=== PATIENT | female | born 1965 | race Caucasian/White ===

== ENCOUNTER 2017-11-30 07:29 | Day surgery (SDC) | payer MEDICARE, MEDICAID ==
[2017-11-26 12:15] LABS: BASOPHILS % (AUTO) 0.3 % (0-1); EOSINOPHILS # (AUTO) 0.2 X10'3 (0-0.9); EOSINOPHILS % (AUTO) 1.4 % (0-6); LYMPHOCYTES # (AUTO) 3.3 X10'3 (1.1-4.8); LYMPHOCYTES % (AUTO) 29.7 % (21-51); MEAN CORPUSCULAR HEMOGLOBIN 30.8 PG (27.0-31.0); MEAN CORPUSCULAR HGB CONC 34.4 % (33.0-36.5); MEAN CORPUSCULAR VOLUME 89.7 FL (78-98); MEAN PLATELET VOLUME 7.9 FL (7.4-10.4); MONOCYTES # (AUTO) 0.8 X10'3 (0-0.9); MONOCYTES % (AUTO) 6.8 % (2-12); NEUTROPHILS # (AUTO) 6.9 X10'3 (1.8-7.7); NEUTROPHILS % (AUTO) 61.8 % (42-75); PRE OP HEMOGLOBIN 14.8 g/dL (12.0-16.0); PRE OP PLATELET COUNT 285 X10'3 (140-440); RED CELL DISTRIBUTION WIDTH 13.9 % (11.5-14.5)
[2017-11-26 12:36] LABS: ALBUMIN 3.3 G/DL (3.4-5.0); ALBUMIN/GLOBULIN RATIO 0.8 (1.1-1.5); ALKALINE PHOSPHATASE 83 IU/L (46-116); BLOOD UREA NITROGEN 12 MG/DL (7-18); CALCIUM 9.3 MG/DL (8.5-10.1); CHLORIDE 107 MMOL/L (99-107); PRE OP ALT 28 U/L (30-65); PRE OP ANION GAP 5 (8-16); PRE OP AST 21 U/L (10-37); PRE OP BILIRUB, TOTAL 0.4 MG/DL (0.0-1.0); PRE OP GLUCOSE 146 MG/DL (70-104); PRE OP SODIUM 144 MMOL/L (135-145); TOTAL PROTEIN 7.2 G/DL (6.4-8.2); eGFR 75 ML/MIN
[2017-11-30] VITALS (10 sets, daily range): BP systolic 121–157; BP diastolic 65–90
[~2017-11-30] VITALS: Ht 152.4 cm; Wt 108.4 kg
[~2017-11-30 07:29] MED LIST: ALBU18HF2; ALEN35TA32 PO; BUPIVAcaine/PF 2.5 mg/ml (0.25%) 30ml vial ONE; EZET10TA26 PO; FENO200C23 PO; FLUO40CA PO; FURO40TA4 PO; HYDR-3972 PO; ISOS10TA2 PO; LANTUS SQ; LINA5TAB4 PO; LISI-600 PO; METF10002 PO; METO25TA6 PO; NAPR-996 PO; NOVLG SQ; POTA8TAB8 PO; ROSU40TA29 PO; TIOT18CA3 IR; TOPI50TA24 PO; TRAZ-143 PO; clindamycin 600mg/D5W 50ml 50 ML IV ONE; famotidine 20mg tablet PO ONE; ringers solution, lacted 1,000 ML IV SCH
[2017-11-30] MEDS ORDERED: albuterol 2.5 MG/3 ML nebule NEB ONE (08:03)
[2017-11-30] MEDS ORDERED: LIDOcaine 0.5% (5mg/ml) 50ml vial ONE (08:11)
[2017-11-30] MEDS ORDERED: fentaNYL/PF 50MCG/1 ML 2ML syringe ONE ×2 (09:24→09:34)
[2017-11-30] MEDS ORDERED: midazolam 2 mg/2 ml injection ONE ×2 (09:25→09:42)
[2017-11-30] MEDS ORDERED: insulin regular, human vial - multi-dose ONE (09:33)
[2017-11-30] MEDS ORDERED: labetalol 5mg/ml 20ml inj. IV ONE (09:50)
[2017-11-30] MEDS ORDERED: ringers solution, lacted 1,000 ML IV SCH (10:09)
[2017-11-30] MEDS ORDERED: ondansetron/PF 4mg/2ml inj IV PRN (10:10)
[2017-11-30] MEDS ORDERED: meperidine/PF 50mg/ml syringe IV PRN ×2 (10:10)
[2017-11-30] MEDS ORDERED: insulin regular, human 10 units/0.1 ml syringe IV ONE (10:15)
[2017-11-30] MEDS ORDERED: ondansetron 4mg rapidly disintigrating tab PO ONE (11:10)
== END 2017-11-30 11:40 | disposition home or self-care (01) ==
LOC: PAS 07:29
PROVIDERS: ATTEND Orthopaedic Surgery Hand Surgery
DX: G56.02 Carpal tunnel syndrome, left upper limb (principal); G47.33 Obstructive sleep apnea (adult) (pediatric); I10 Essential (primary) hypertension; E66.9 Obesity, unspecified; E11.9 Type 2 diabetes mellitus without complications; F32.9 Major depressive disorder, single episode, unspecified; I44.4 Left anterior fascicular block; J45.998 Other asthma; F41.9 Anxiety disorder, unspecified; Z79.891 Long term (current) use of opiate analgesic; Z79.84 Long term (current) use of oral hypoglycemic drugs; Z79.4 Long term (current) use of insulin; Z88.6 Allergy status to analgesic agent; Z88.0 Allergy status to penicillin; Z87.891 Personal history of nicotine dependence; Z79.899 Other long term (current) drug therapy; Z98.890 Other specified postprocedural states; Z88.8 Allergy status to other drugs, medicaments and biological substances; Z68.42 Body mass index [BMI] 45.0-49.9, adult
CPT/HCPCS: 36415; 64721; 80053; 82948; 85025; 93005; 94640; A6222; A6449; J1815; J2001; J2250; J3010; J3490; J7120; J2405

== ENCOUNTER 2017-12-28 05:36 | Day surgery (SDC) | payer MEDICARE, MEDICAID ==
[~2017-12-28] VITALS: Ht 152.4 cm; Wt 108.0 kg
[~2017-12-28 05:36] MED LIST changes: -BUPIVAcaine/PF 2.5 mg/ml (0.25%) 30ml vial ONE; +DOCUMENT DATE & TIME OF BETA-BLOCKER PO ONE; -METF10002 PO; +METF10004 PO
[2017-12-28] MEDS ORDERED: LIDOcaine 1% (10mg/ml) 2ml vial ONE (05:57)
[2017-12-28] MEDS ORDERED: BUPIVAcaine 0.5% inj/PF 30 ml vial ONE (06:42)
[2017-12-28] MEDS ORDERED: albuterol 2.5 MG/3 ML nebule NEB ONE (06:55)
[2017-12-28 07:00] LABS: BASOPHILS # (AUTO) 0.1 X10'3 (0-0.2); BASOPHILS % (AUTO) 0.7 % (0-1); EOSINOPHILS # (AUTO) 0.1 X10'3 (0-0.9); LYMPHOCYTES # (AUTO) 3.4 X10'3 (1.1-4.8); LYMPHOCYTES % (AUTO) 31.1 % (21-51); MEAN CORPUSCULAR HEMOGLOBIN 30.6 PG (27.0-31.0); MEAN CORPUSCULAR HGB CONC 33.9 % (33.0-36.5); MEAN CORPUSCULAR VOLUME 90.3 FL (78-98); MEAN PLATELET VOLUME 7.6 FL (7.4-10.4); MONOCYTES % (AUTO) 9.2 % (2-12); NEUTROPHILS # (AUTO) 6.4 X10'3 (1.8-7.7); PRE OP HEMATOCRIT 43.3 % (35.0-45.0); PRE OP HEMOGLOBIN 14.7 g/dL (12.0-16.0); PRE OP PLATELET COUNT 280 X10'3 (140-440); RED CELL DISTRIBUTION WIDTH 13.3 % (11.5-14.5)
[2017-12-28 07:17] VITALS: BP 135/67
[2017-12-28 07:17] LABS: ALBUMIN/GLOBULIN RATIO 0.8 (1.1-1.5); ALKALINE PHOSPHATASE 95 IU/L (46-116); BLOOD UREA NITROGEN 12 MG/DL (7-18); BUN/CREATININE RATIO 13.3 (6.6-38.0); CALCIUM 8.8 MG/DL (8.5-10.1); CHLORIDE 103 MMOL/L (99-107); PRE OP ALT 22 U/L (30-65); PRE OP ANION GAP 11 (8-16); PRE OP AST 21 U/L (10-37); PRE OP BILIRUB, TOTAL 0.3 MG/DL (0.0-1.0); PRE OP GLUCOSE 182 MG/DL (70-104); PRE OP SODIUM 138 MMOL/L (135-145); TOTAL CARBON DIOXIDE 24.1 MMOL/L (24-32); eGFR 66 ML/MIN
[2017-12-28 07:18] VITALS: BP 135/67
[2017-12-28] MEDS ORDERED: MIDAZolam 5mg/5ml vial ONE (07:22)
[2017-12-28] MEDS ORDERED: fentaNYL/PF 50MCG/1 ML 2ML syringe ONE (07:22)
[2017-12-28] MEDS ORDERED: LIDOcaine 1% 30ml preserv. free vial ONE (07:24)
[2017-12-28] MEDS ORDERED: ketorolac trometh. 30mg/ml inj. ONE (07:44)
[2017-12-28 07:50] VITALS: BP 133/73
[2017-12-28 08:00] VITALS: BP 121/73
[2017-12-28 08:10] VITALS: BP 125/73
[2017-12-28 08:20] VITALS: BP 126/68
[2017-12-28] MEDS ORDERED: ringers solution, lacted 1,000 ML IV SCH (08:21)
[2017-12-28] MEDS ORDERED: ondansetron/PF 4mg/2ml inj IV PRN (08:25)
[2017-12-28] MEDS ORDERED: meperidine/PF 25mg/ml syringe IV PRN ×3 (08:25)
[2017-12-28] MEDS ORDERED: proCHLORperazine 10 MG/2 ml inj IV PRN (08:25)
== END 2017-12-28 08:30 | disposition home or self-care (01) ==
LOC: PAS 05:36
PROVIDERS: ATTEND Orthopaedic Surgery Hand Surgery
DX: G56.01 Carpal tunnel syndrome, right upper limb (principal); I44.4 Left anterior fascicular block; I10 Essential (primary) hypertension; J45.998 Other asthma; F32.9 Major depressive disorder, single episode, unspecified; F41.9 Anxiety disorder, unspecified; G47.33 Obstructive sleep apnea (adult) (pediatric); E11.9 Type 2 diabetes mellitus without complications; Z88.0 Allergy status to penicillin; Z88.6 Allergy status to analgesic agent; Z88.8 Allergy status to other drugs, medicaments and biological substances; Z87.891 Personal history of nicotine dependence; Z85.828 Personal history of other malignant neoplasm of skin; Z79.4 Long term (current) use of insulin; Z79.84 Long term (current) use of oral hypoglycemic drugs; Z79.891 Long term (current) use of opiate analgesic; Z79.899 Other long term (current) drug therapy; Z98.890 Other specified postprocedural states
CPT/HCPCS: 36415; 64721; 80053; 82948; 85025; 93005; 94640; 94760; A6222; A6449; J1885; J2250; J3010; J3490; J7120

== ENCOUNTER 2018-01-23 01:31 | Outpatient (CLI) | payer MEDICARE, MEDICAID ==
[~2018-01-23 01:31] MED LIST changes: -DOCUMENT DATE & TIME OF BETA-BLOCKER PO ONE; +ROSU40TA21 PO; -ROSU40TA29 PO; -clindamycin 600mg/D5W 50ml 50 ML IV ONE; -famotidine 20mg tablet PO ONE; -ringers solution, lacted 1,000 ML IV SCH
== END 2018-01-23 23:59 | disposition home or self-care (01) ==
LOC: DIABETIC 01:31
PROVIDERS: ATTEND Specialist
DX: E11.65 Type 2 diabetes mellitus with hyperglycemia (principal); I10 Essential (primary) hypertension; J45.909 Unspecified asthma, uncomplicated
CPT/HCPCS: G0108

== ENCOUNTER 2018-04-30 02:20 | Outpatient (CLI) | payer MEDICARE, MEDICAID ==
[~2018-04-30 02:20] MED LIST changes: +METF-438 PO; -METF10004 PO; -TRAZ-143 PO; +TRAZ-218 PO
== END 2018-04-30 23:59 | disposition home or self-care (01) ==
LOC: DIABETIC 02:20
PROVIDERS: ATTEND Specialist
DX: E11.65 Type 2 diabetes mellitus with hyperglycemia (principal); I10 Essential (primary) hypertension; J45.909 Unspecified asthma, uncomplicated; Z79.4 Long term (current) use of insulin; Z79.84 Long term (current) use of oral hypoglycemic drugs; Z79.899 Other long term (current) drug therapy; Z88.5 Allergy status to narcotic agent; Z88.0 Allergy status to penicillin; Z85.828 Personal history of other malignant neoplasm of skin
CPT/HCPCS: G0108

== ENCOUNTER 2018-09-10 00:18 | Outpatient (CLI) | payer MEDICARE, MEDICAID | END 2018-09-10 23:59 | disposition home or self-care (01) | LOC: DIABETIC 00:18 | PROVIDERS: ATTEND Specialist | DX: E11.65 Type 2 diabetes mellitus with hyperglycemia (principal); I10 Essential (primary) hypertension; J45.909 Unspecified asthma, uncomplicated; Z79.899 Other long term (current) drug therapy; Z79.84 Long term (current) use of oral hypoglycemic drugs; Z98.890 Other specified postprocedural states; Z88.0 Allergy status to penicillin; Z88.5 Allergy status to narcotic agent; Z88.8 Allergy status to other drugs, medicaments and biological substances | CPT/HCPCS: G0108 ==

== ENCOUNTER 2018-12-10 02:24 | Outpatient (CLI) | payer MEDICARE, MEDICAID | END 2018-12-10 23:59 | disposition home or self-care (01) | LOC: DIABETIC 02:24 | PROVIDERS: ATTEND Specialist | DX: E11.65 Type 2 diabetes mellitus with hyperglycemia (principal) | CPT/HCPCS: G0108 ==

== ENCOUNTER 2019-03-25 08:00 | Outpatient (CLI) | payer MEDICARE, MEDICAID ==
[~2019-03-25 08:00] MED LIST changes: +ALEN35TA21 PO; -ALEN35TA32 PO; -EZET10TA26 PO; +EZET10TA48 PO; -ROSU40TA21 PO; +ROSU40TA22 PO; -TRAZ-218 PO; +TRAZ-251 PO
== END 2019-03-25 23:59 | disposition home or self-care (01) ==
LOC: DIABETIC 08:00
PROVIDERS: ATTEND Specialist
DX: E11.65 Type 2 diabetes mellitus with hyperglycemia (principal); I10 Essential (primary) hypertension; J45.909 Unspecified asthma, uncomplicated; Z79.4 Long term (current) use of insulin; Z79.84 Long term (current) use of oral hypoglycemic drugs; Z88.0 Allergy status to penicillin; Z88.6 Allergy status to analgesic agent; Z79.899 Other long term (current) drug therapy
CPT/HCPCS: G0108

== ENCOUNTER 2019-07-14 06:43 | Outpatient (CLI) | payer MEDICARE, MEDICAID | END 2019-07-14 23:59 | disposition home or self-care (01) | LOC: DIABETIC 06:43 | PROVIDERS: ATTEND Specialist | DX: E11.65 Type 2 diabetes mellitus with hyperglycemia (principal); I10 Essential (primary) hypertension; J45.909 Unspecified asthma, uncomplicated; Z79.4 Long term (current) use of insulin; Z79.899 Other long term (current) drug therapy; Z88.0 Allergy status to penicillin; Z88.6 Allergy status to analgesic agent | CPT/HCPCS: G0108 ==

== ENCOUNTER 2019-10-13 04:07 | Outpatient (CLI) | payer MEDICARE, MEDICAID | END 2019-10-13 23:59 | disposition home or self-care (01) | LOC: DIABETIC 04:07 | PROVIDERS: ATTEND Specialist | DX: E11.65 Type 2 diabetes mellitus with hyperglycemia (principal) | CPT/HCPCS: G0108 ==

== ENCOUNTER 2021-04-02 06:39 | Emergency (ER) | payer MEDICARE, MEDICAID ==
[~2021-04-02] VITALS: Ht 154.9 cm; Wt 122.7 kg
[~2021-04-02 06:39] MED LIST changes: -ALEN35TA21 PO; +ALEN35TA53 PO; -LISI-600 PO; +LISI20TA28 PO; +LOP25T PO; -METO25TA6 PO
[2021-04-02 06:47] VITALS: BP 172/109
--- NOTE | 2021-04-02 07:15 | NUR ---
PATIENT HAS SMALL OOZING ABSCESS AT BACK OF NECK. STICKY GREYISH DRAINAGE NOTED FROM 2 PINPOINT OPENINGS IN NECK FOLD. MILD ERYTHEMA NOTED.
[2021-04-02 07:58] LABS: CLARITY,URINE SLIGHTLY CLOUDY (Clear); COLOR,URINE YELLOW (Yellow); GLUCOSE, URINE NEGATIVE (Neg); KETONES,URINE NEGATIVE (Neg); LEUKOCYTE ESTERASE ,URINE NEGATIVE (Neg); NITRITES, URINE NEGATIVE (Neg); OCCULT BLOOD,URINE LARGE (Neg); PROTEIN,URINE 30 mg/dl (Neg)
[2021-04-02 08:01] LABS: BASOPHILS % (AUTO) 0.5 % (0-1); EOSINOPHILS # (AUTO) 0.1 X10'3 (0-0.9); EOSINOPHILS % (AUTO) 1.1 % (0-6); HEMOGLOBIN 17.6 g/dl (12.0-16.0); LYMPHOCYTES # (AUTO) 1.7 X10'3 (1.1-4.8); LYMPHOCYTES % (AUTO) 18.3 % (21-51); MEAN CORPUSCULAR HEMOGLOBIN 31.2 PG (27.0-31.0); MEAN CORPUSCULAR HGB CONC 32.5 g/dL (33.0-36.5); MEAN PLATELET VOLUME 7.9 FL (7.4-10.4); MONOCYTES % (AUTO) 10.6 % (2-12); NEUTROPHILS # (AUTO) 6.5 X10'3 (1.8-7.7); NEUTROPHILS % (AUTO) 69.5 % (42-75); PLATELET COUNT 217 X10'3 (140-440); RED BLOOD COUNT 5.63 X10'6 (4.20-5.60); RED CELL DISTRIBUTION WIDTH 15.8 % (11.5-14.5); WHITE BLOOD COUNT 9.4 X10'3 (4.5-11.0)
[2021-04-02 08:04] LABS: UA COLLECTION TYPE CLN CATCH MIDSTREAM
[2021-04-02 08:05] LABS: BACTERIA,URINE FEW /HPF (Neg); MUCUS STRANDS FEW /LPF (Neg); RBC,URINE 0-2 /HPF (0-2); SQUAMOUS EPITHELIAL CELL,UR MANY /LPF (FEW); WBC,URINE 0-4 /HPF (0-4)
[2021-04-02 08:28] LABS: PARTIAL THROMBOPLASTIN TIME 30 SECONDS (22-32)
[2021-04-02 08:47] LABS: BILIRUBIN,TOTAL 0.6 MG/DL (0.1-1.0); BLOOD UREA NITROGEN 13 MG/DL (7-18); BUN/CREATININE RATIO 15.9 (6.6-38.0); CALCIUM 8.1 MG/DL (8.5-10.1); CHLORIDE 108 MMOL/L (99-107); CREATININE 0.82 MG/DL (0.40-0.90); GLUCOSE 78 MG/DL (70-104); POTASSIUM 4.2 MMOL/L (3.5-5.1); TOTAL CARBON DIOXIDE 33.2 MMOL/L (24-32); TOTAL PROTEIN 7.6 G/DL (6.4-8.2); eGFR 72 ML/MIN
[2021-04-02 08:48] LABS: ALANINE AMINOTRANSFERASE 21 U/L (12-78); ALBUMIN 3.2 G/DL (3.4-5.0); ALBUMIN/GLOBULIN RATIO 0.7 (1.1-1.5); ALKALINE PHOSPHATASE 88 IU/L (46-116); ASPARTATE AMINO TRANSFERASE 17 U/L (10-37)
[2021-04-02 09:42] LABS: ANION GAP 3 (8-16); SODIUM 144 MMOL/L (135-145)
== END 2021-04-02 10:28 | disposition home or self-care (01) ==
LOC: ER 06:40
DX: R31.9 Hematuria, unspecified (principal); D75.1 Secondary polycythemia; I10 Essential (primary) hypertension; E78.00 Pure hypercholesterolemia, unspecified; E11.9 Type 2 diabetes mellitus without complications; Z98.890 Other specified postprocedural states; Z88.0 Allergy status to penicillin; Z88.5 Allergy status to narcotic agent; Z88.1 Allergy status to other antibiotic agents; Z79.4 Long term (current) use of insulin; Z79.899 Other long term (current) drug therapy
CPT/HCPCS: 36415; 71045; 74176; 80053; 81001; 82948; 83880; 85025; 85610; 85730; 86885; 86900; 86901; 93005; 99285

== ENCOUNTER 2021-04-17 17:03 | Inpatient (IN) | payer MEDICARE, MEDICAID ==
[~2021-04-17] VITALS: Ht 152.4 cm; Wt 130.0 kg
[~2021-04-17 17:03] MED LIST changes: -ALBU18HF2; +ALBU18HF2 INH; +TIOT18CA3 IH; -TIOT18CA3 IR; +etomidate 2mg/ml inj. ONE; +rocuronium 10mg/ml inj IV ONE
--- NOTE | 2021-04-17 18:10 | NUR ---
sbar the pt condition to dr angel also informed about pt bld sugar 444 as per md start iv fluid to hydrate iv n.s 2l iv bolus.
[2021-04-17 18:15] LABS: BASOPHILS % (AUTO) 0.4 % (0-1); EOSINOPHILS % (AUTO) 0 % (0-6); HEMATOCRIT 56.9 % (35.0-45.0); LYMPHOCYTES # (AUTO) 0.8 X10'3 (1.1-4.8); LYMPHOCYTES % (AUTO) 10.5 % (21-51); MEAN CORPUSCULAR HEMOGLOBIN 30.9 PG (27.0-31.0); MEAN CORPUSCULAR HGB CONC 32.3 g/dL (33.0-36.5); MEAN CORPUSCULAR VOLUME 95.8 FL (78-98); MEAN PLATELET VOLUME 7.9 FL (7.4-10.4); MONOCYTES % (AUTO) 13.1 % (2-12); NEUTROPHILS # (AUTO) 5.8 X10'3 (1.8-7.7); PLATELET COUNT 152 X10'3 (140-440); RED BLOOD COUNT 5.94 X10'6 (4.20-5.60); RED CELL DISTRIBUTION WIDTH 15.3 % (11.5-14.5); WHITE BLOOD COUNT 7.6 X10'3 (4.5-11.0)
[2021-04-17] MEDS ORDERED: normal saline 1000ml 1,000 ML IV ONE (18:15)
[2021-04-17 18:23] LABS: HEMOGLOBIN 18.4 g/dl (12.0-16.0)
[2021-04-17 18:37] LABS: ALANINE AMINOTRANSFERASE 13 U/L (12-78); ALBUMIN 2.6 G/DL (3.4-5.0); ALBUMIN/GLOBULIN RATIO 0.6 (1.1-1.5); ALKALINE PHOSPHATASE 79 IU/L (46-116); ANION GAP 7 (8-16); ASPARTATE AMINO TRANSFERASE 42 U/L (10-37); BILIRUBIN,TOTAL 0.8 MG/DL (0.1-1.0); BLOOD UREA NITROGEN 17 MG/DL (7-18); BUN/CREATININE RATIO 15.5 (6.6-38.0); CALCIUM 8.1 MG/DL (8.5-10.1); CHLORIDE 98 MMOL/L (99-107); GLUCOSE 429 MG/DL (70-104); SODIUM 135 MMOL/L (135-145); TOTAL CARBON DIOXIDE 30.3 MMOL/L (24-32); TOTAL PROTEIN 7.2 G/DL (6.4-8.2); eGFR 52 ML/MIN
[2021-04-17 18:39] LABS: D-DIMER 1.11 MG/L FEU (0-0.50)
[2021-04-17 18:39] LABS: C-REACTIVE PROTEIN 9.32 MG/DL (0.0-0.5)
[2021-04-17 18:50] LABS: POTASSIUM 5.1 MMOL/L (3.5-5.1)
[2021-04-17 18:53] LABS: LACTATE DEHYDROGENASE 351 U/L (81-234)
[2021-04-17] MEDS ORDERED: dexamethasone 4mg/ml inj IV ONE (19:10)
[2021-04-17] MEDS ORDERED: REMDESIVIR INJ 200 MG in normal saline 100ml IV soln 60 ML IV ONE (19:35)
--- NOTE | 2021-04-17 20:20 | NUR ---
SPOKE WITH DR. ESPINOSA REGARDING PT BLOOD SUGAR BEING ELEVATED. HE STATES HE WILL ORDER INSULIN
[2021-04-17] MEDS ORDERED: temazepam 15mg capsule PO PRN (21:00)
[2021-04-17] MEDS ORDERED: GABA300C PO (21:54)
[2021-04-17] MEDS ORDERED: SITA25TA3 PO (22:08)
[2021-04-17] MEDS ORDERED: ISOS10TA8 PO (22:08)
[2021-04-17] MEDS ORDERED: POTA8CAP20 PO (22:08)
--- NOTE | 2021-04-17 22:22 | NUR ---
READDRESSED ORDERING INSULIN WITH DR. ESPINOSA.
[2021-04-17] MEDS ORDERED: bisacodyl 10mg suppository rectal RC PRN (22:30)
[2021-04-17] MEDS ORDERED: magnesium hydroxide 30ml (MOM) UD suspension PO PRN (22:30)
[2021-04-17] MEDS ORDERED: HYDROmorphone inj. 0.5 MG/0.5 ML DISP.SYRIN IV PRN (22:30)
[2021-04-17] MEDS ORDERED: acetaminophen 325mg tablet PO PRN ×2 (22:30)
[2021-04-17] MEDS ORDERED: diphenhydrAMINE 25mg capsule PO PRN (22:30)
[2021-04-17] MEDS ORDERED: HYDROcodone/acetaminophen 5mg/325mg tablet PO PRN (22:30)
[2021-04-17] MEDS ORDERED: ondansetron 4mg rapidly disintigrating tab PO PRN (22:30)
[2021-04-17] MEDS ORDERED: mag hydrox/Alum hydrox/simeth 30ml oral suspension PO PRN (22:30)
[2021-04-17] MEDS ORDERED: ondansetron/PF 4mg/2ml inj IV PRN (22:30)
[2021-04-17] MEDS ORDERED: diphenhydrAMINE 50 mg/ml inj IV PRN (22:30)
[2021-04-17] MEDS ORDERED: acetaminophen 650mg rectal suppository RC PRN (22:30)
[2021-04-17] MEDS ORDERED: HYDROcodone/acetaminophen 10/325mg tab PO PRN (22:30)
[2021-04-17] MEDS ORDERED: ALBUTEROL INHALER 1 PUFF/90 MCG INHALER IH PRN (22:35)
[2021-04-17] MEDS ORDERED: dextrose 50%-water 50ml dispensing syringe IV PRN ×2 (22:35)
[2021-04-17] MEDS ORDERED: MESSAGE TO PHARMACY PO ONE (22:35)
[2021-04-17] MEDS ORDERED: dextrose ORAL solution 15 GM/59 ML bottle PO PRN ×2 (22:35)
[2021-04-17] MEDS ORDERED: glucagon, human recombinant 1mg kit SUBCUT PRN (22:35)
[2021-04-17] MEDS ORDERED: acetaminophen 1,000mg/100ml IV 100 ML IV PRN (22:50)
--- NOTE | 2021-04-17 23:39 | NUR ---
DISCUSSED PT ELEVATED TROPONINS WITH DR. LADD. HE STATES HE HAS ASPIRIN AND LOVENOX ORDERED AND HE IS NOT TOO WORRIED ABOUT THEM AT THIS TIME.
[2021-04-18] MEDS: aspirin 81mg, enteric-coated 1 TAB TABLET.DR PO SCH ×2 (00:42→08:18)
[2021-04-18 00:45] LABS: HEMOGLOBIN A1C 7.7 % (4.5-6.2)
[2021-04-18] MEDS: insulin Lispro (HumaLOG) vial - multi-dose SQ SCH ×3 (00:49→20:35)
[2021-04-18 00:54] LABS: PHOSPHORUS 3.3 MG/DL (2.3-4.5)
--- NOTE | 2021-04-18 01:00 | NUR ---
Confirmed with Dr. Cartwright that he ordered 0.45% sodium chloride.
[2021-04-18] MEDS: sodium chloride 0.45% 1,000 ML IV SCH ×2 (01:05→08:37)
--- NOTE | 2021-04-18 01:47 | NUR ---
SPOKE WITH DR LADD AND REQUESTED ABG DONE FOR PT. HE ADVISED CPAP FOR PT WELL AND IF PT IS RETAINING CO2 TO SWITCH HER TO BIPAP. RESPIRATORY PAGED AND ORDER PUT IN.
[2021-04-18 02:33] LABS: ABG BASE EXCESS -1.4 mmol/L (-2.0-2.0); ABG HCO3 27.5 mmol/L (22.0-26.0); ABG PCO2 (T) 61.2 mmHg (32.0-45.0); ABG PO2 (T) 93.9 mmHg (75.0-100.0); FCOHb 0.3 % (0.0-3.9); FLOW 15 L/min; FMetHb 0.5 % (0.0-1.5); FO2Hb 95.2 % (94-97); TOTAL HEMOGLOBIN 19.5 G/dl (12.0-16.0)
[2021-04-18 06:30] LABS: ALANINE AMINOTRANSFERASE 20 U/L (12-78); ALBUMIN 2.5 G/DL (3.4-5.0); ALBUMIN/GLOBULIN RATIO 0.6 (1.1-1.5); ALKALINE PHOSPHATASE 77 IU/L (46-116); ANION GAP 6 (8-16); ASPARTATE AMINO TRANSFERASE 39 U/L (10-37); BILIRUBIN,TOTAL 0.7 MG/DL (0.1-1.0); BLOOD UREA NITROGEN 19 MG/DL (7-18); BUN/CREATININE RATIO 19.4 (6.6-38.0); CALCIUM 8.3 MG/DL (8.5-10.1); CHLORIDE 102 MMOL/L (99-107); CREATININE 0.98 MG/DL (0.40-0.90); GLUCOSE 437 MG/DL (70-104); POTASSIUM 5.4 MMOL/L (3.5-5.1); SODIUM 140 MMOL/L (135-145); TOTAL CARBON DIOXIDE 31.8 MMOL/L (24-32); TOTAL PROTEIN 6.9 G/DL (6.4-8.2); eGFR 59 ML/MIN
[2021-04-18] MEDS: ISOSORBIDE MONONITRATE 10 MG PO SCH (08:00)
[2021-04-18] MEDS ORDERED: levoFLOXACIN-Levaquin 750MG/D5 150 ML IV SCH (08:00)
[2021-04-18] MEDS: docusate sod 100mg capsule PO SCH ×2 (08:00→20:00)
[2021-04-18] MEDS: enoxaparin 60mg/0.6ml syringe SUBCUT SCH ×2 (08:15→20:32)
[2021-04-18] MEDS: ezetimibe 10mg tablet PO SCH (08:16)
[2021-04-18] MEDS: metoprolol tartrate 25mg tablet PO SCH ×2 (08:17→20:00)
[2021-04-18] MEDS: lisinopril 20mg tablet PO SCH (08:18)
[2021-04-18] MEDS: pantoprazole 40mg Tablet.DR PO SCH (08:18)
[2021-04-18] MEDS: fenofibrate 145mg tablet PO SCH (08:34)
[2021-04-18 08:35] LABS: BASOPHILS % (AUTO) 0.5 % (0-1); EOSINOPHILS % (AUTO) 0 % (0-6); HEMATOCRIT 58.5 % (35.0-45.0); LYMPHOCYTES # (AUTO) 0.7 X10'3 (1.1-4.8); LYMPHOCYTES % (AUTO) 9.5 % (21-51); MEAN CORPUSCULAR HEMOGLOBIN 30.8 PG (27.0-31.0); MEAN CORPUSCULAR VOLUME 96.1 FL (78-98); MEAN PLATELET VOLUME 8.1 FL (7.4-10.4); MONOCYTES # (AUTO) 0.5 X10'3 (0-0.9); MONOCYTES % (AUTO) 7.7 % (2-12); NEUTROPHILS # (AUTO) 5.7 X10'3 (1.8-7.7); NEUTROPHILS % (AUTO) 82.3 % (42-75); PLATELET COUNT 159 X10'3 (140-440); RED BLOOD COUNT 6.09 X10'6 (4.20-5.60); RED CELL DISTRIBUTION WIDTH 15.7 % (11.5-14.5)
[2021-04-18 08:47] LABS: HEMOGLOBIN 18.7 g/dl (12.0-16.0)
[2021-04-18] MEDS: REMDESIVIR INJ 100 MG in normal saline 100ml IV soln 80 ML IV SCH (09:58)
[2021-04-18] MEDS: nitroGLYCERIN 0.2mg/hour patch TD SCH (09:59)
--- NOTE | 2021-04-18 10:06 | NUR ---
waiting for decadon from pharamcy,need to clarify the insulin doseage ,clarified with bernardino charge nurse ,lester carroll and césar but no one is sure ,will have pharmacist césar help me with dosage of insulin unit.informed the charge bernardino ,that i will be going out to [facility] for insulin calaculation.
--- NOTE | 2021-04-18 10:45 | NUR ---
clarified with dr helton if he is aware of pt troponin ,blood sugar and informed that pt is on lantus and humolog but have not recived the lantus last night as per put pt on 60 u lantus bid for bld sugar as pt takes 80 u of lantus bid .
[2021-04-18] MEDS: dexamethasone inj 6 MG in normal saline 50ml IV soln 50 ML IV SCH ×2 (10:51→20:39)
[2021-04-18 11:19] LABS: PLATELET ESTIMATE NORMAL; TOTAL CELLS COUNTED 100; TOXIC GRANULATION 1+
[2021-04-18 11:20] LABS: POLYCHROMASIA FEW
[2021-04-18] MEDS ORDERED: insulin glargine (Lantus) pen - multi-dose SQ ONE (11:27)
--- NOTE | 2021-04-18 15:35 | NUR ---
PT NOT MEDICATED WITH INSULIN PT RECIVED MORNING INSULIN AROUND 12 PM AND IT WAS TOO CLOSE TO CORRECT THE BLD SUGAR . IN THE MORNING THERE WAS CONFUSION RELATED TO INSULIN CORRECTIONAL TOOL .DR WRIGHT WAS AWARE THAT WE ARE GIVING INSULIN LATE WHEN HE CAME FOR ROUNDS ,WILL ADMIN INSULIN AT DINNER TIME AROUND 1700 PM.
--- NOTE | 2021-04-18 17:36 | NUR ---
WAITING FOR PT FOOD TRAY BLD SUGAR 446 ,WILL ADMIN INSULIN WHEN WE GET THE DINNER TRAY.
[2021-04-18] MEDS: lactobacillus rhamnosus 10,000 MMU CELLS/CAPSULE PO SCH (20:31)
[2021-04-18] MEDS: insulin glargine (Lantus) pen - multi-dose SQ SCH (20:34)
[2021-04-19] MEDS: docusate sod 100mg capsule PO SCH ×2 (06:22→20:00)
[2021-04-19] MEDS: lactobacillus rhamnosus 10,000 MMU CELLS/CAPSULE PO SCH ×2 (07:12→20:24)
[2021-04-19] MEDS: aspirin 81mg, enteric-coated 1 TAB TABLET.DR PO SCH (07:13)
[2021-04-19] MEDS: metoprolol tartrate 25mg tablet PO SCH ×2 (07:14→20:24)
[2021-04-19] MEDS: pantoprazole 40mg Tablet.DR PO SCH (07:15)
[2021-04-19] MEDS: lisinopril 20mg tablet PO SCH (07:16)
[2021-04-19] MEDS: ezetimibe 10mg tablet PO SCH (07:18)
[2021-04-19] MEDS: nitroGLYCERIN 0.2mg/hour patch TD SCH (07:29)
[2021-04-19 07:50] LABS: BASOPHILS % (AUTO) 0.4 % (0-1); EOSINOPHILS % (AUTO) 0 % (0-6); HEMATOCRIT 58.5 % (35.0-45.0); LYMPHOCYTES # (AUTO) 0.6 X10'3 (1.1-4.8); LYMPHOCYTES % (AUTO) 5.3 % (21-51); MEAN CORPUSCULAR HEMOGLOBIN 30.8 PG (27.0-31.0); MEAN CORPUSCULAR HGB CONC 31.7 g/dL (33.0-36.5); MEAN CORPUSCULAR VOLUME 97.1 FL (78-98); MEAN PLATELET VOLUME 8.1 FL (7.4-10.4); MONOCYTES # (AUTO) 0.8 X10'3 (0-0.9); MONOCYTES % (AUTO) 6.8 % (2-12); NEUTROPHILS # (AUTO) 9.7 X10'3 (1.8-7.7); NEUTROPHILS % (AUTO) 87.5 % (42-75); PLATELET COUNT 182 X10'3 (140-440); RED BLOOD COUNT 6.03 X10'6 (4.20-5.60); RED CELL DISTRIBUTION WIDTH 15.7 % (11.5-14.5); WHITE BLOOD COUNT 11.1 X10'3 (4.5-11.0)
[2021-04-19 07:52] LABS: HEMOGLOBIN 18.5 g/dl (12.0-16.0)
--- NOTE | 2021-04-19 07:57 | NUR ---
Patient critical lab value HGB 18.5. Hospitalist (Dr. Kaufman) has been paged and waiting for a response
[2021-04-19] MEDS: ISOSORBIDE MONONITRATE 10 MG PO SCH (08:00)
[2021-04-19 08:09] LABS: ALANINE AMINOTRANSFERASE 19 U/L (12-78); ALBUMIN 2.4 G/DL (3.4-5.0); ALBUMIN/GLOBULIN RATIO 0.5 (1.1-1.5); ALKALINE PHOSPHATASE 81 IU/L (46-116); ANION GAP 2 (8-16); ASPARTATE AMINO TRANSFERASE 42 U/L (10-37); BILIRUBIN,TOTAL 0.6 MG/DL (0.1-1.0); BLOOD UREA NITROGEN 45 MG/DL (7-18); BUN/CREATININE RATIO 35.4 (6.6-38.0); C-REACTIVE PROTEIN 7.92 MG/DL (0.0-0.5); CALCIUM 8.7 MG/DL (8.5-10.1); CHLORIDE 101 MMOL/L (99-107); CREATININE 1.27 MG/DL (0.40-0.90); GLUCOSE 418 MG/DL (70-104); SODIUM 135 MMOL/L (135-145); TOTAL CARBON DIOXIDE 32.1 MMOL/L (24-32); TOTAL PROTEIN 6.8 G/DL (6.4-8.2); eGFR 44 ML/MIN
[2021-04-19 08:22] LABS: POTASSIUM 5.9 MMOL/L (3.5-5.1)
[2021-04-19] MEDS ORDERED: sodium polystyrene sulfonate 15gm/60ml oral suspension PO ONE (08:35)
[2021-04-19] MEDS: dexamethasone inj 6 MG in normal saline 50ml IV soln 50 ML IV SCH ×2 (08:56→09:07)
[2021-04-19] MEDS: fenofibrate 145mg tablet PO SCH ×3 (08:56→09:12)
--- NOTE | 2021-04-19 09:19 | NUR ---
Patient is still sleepy and does not want breakfast. Will hold insulin until client eats something
[2021-04-19] MEDS: REMDESIVIR INJ 100 MG in normal saline 100ml IV soln 80 ML IV SCH (09:48)
[2021-04-19 09:56] LABS: D-DIMER 1.25 MG/L FEU (0-0.50)
[2021-04-19] MEDS: enoxaparin 60mg/0.6ml syringe SUBCUT SCH ×2 (09:56→20:26)
--- NOTE | 2021-04-19 10:08 | NUR ---
dr helton at bedside ,informed that pt is c/o lower chest pain with epigastric pain and coughing bld tinged sputum .no orders yet.
[2021-04-19] MEDS: insulin Lispro (HumaLOG) vial - multi-dose SQ SCH ×3 (11:10→20:20)
--- NOTE | 2021-04-19 16:30 | NUR ---
Notified provider in regards to patient wound on the back of her neck. Requests wound care consult
--- NOTE | 2021-04-19 18:52 | NUR ---
UNABLE TO TAKE PICTURE OF WOUND DUE TO CAMERA PROBLEM IN ER ITS NOT WORKING NOTIFIED THE BRISA NURSE.
[2021-04-19 19:30] VITALS: BP 107/53
[2021-04-19] MEDS: insulin glargine (Lantus) pen - multi-dose SQ SCH (21:22)
[2021-04-19 22:00] VITALS: BP 112/44
[2021-04-20 02:00] VITALS: BP 103/54
[2021-04-20 06:00] VITALS: BP 105/48
--- NOTE | 2021-04-20 06:46 | NUR ---
Problems reprioritized. Patient report given, questions answered & plan of care reviewed with ARTIE CONWAY.
[2021-04-20] MEDS: pantoprazole 40mg Tablet.DR PO SCH (07:30)
[2021-04-20 07:41] LABS: BASOPHILS % (AUTO) 0.1 % (0-1); EOSINOPHILS % (AUTO) 0 % (0-6); HEMATOCRIT 55.3 % (35.0-45.0); HEMOGLOBIN 17.7 g/dl (12.0-16.0); LYMPHOCYTES # (AUTO) 0.6 X10'3 (1.1-4.8); LYMPHOCYTES % (AUTO) 4.2 % (21-51); MEAN CORPUSCULAR HEMOGLOBIN 30.7 PG (27.0-31.0); MEAN CORPUSCULAR VOLUME 95.8 FL (78-98); MEAN PLATELET VOLUME 8.1 FL (7.4-10.4); MONOCYTES # (AUTO) 1.2 X10'3 (0-0.9); MONOCYTES % (AUTO) 8.8 % (2-12); NEUTROPHILS % (AUTO) 86.9 % (42-75); PLATELET COUNT 212 X10'3 (140-440); RED BLOOD COUNT 5.77 X10'6 (4.20-5.60); RED CELL DISTRIBUTION WIDTH 15.3 % (11.5-14.5); WHITE BLOOD COUNT 13.8 X10'3 (4.5-11.0)
[2021-04-20] MEDS: metoprolol tartrate 25mg tablet PO SCH ×2 (08:00→19:55)
[2021-04-20] MEDS: ISOSORBIDE MONONITRATE 10 MG PO SCH (08:00)
[2021-04-20] MEDS: docusate sod 100mg capsule PO SCH ×2 (08:00→19:52)
[2021-04-20] MEDS: nitroGLYCERIN 0.2mg/hour patch TD SCH (08:00)
[2021-04-20] MEDS: lisinopril 20mg tablet PO SCH (08:00)
[2021-04-20 08:27] LABS: ALANINE AMINOTRANSFERASE 20 U/L (12-78); ALBUMIN 2.3 G/DL (3.4-5.0); ALBUMIN/GLOBULIN RATIO 0.6 (1.1-1.5); ALKALINE PHOSPHATASE 72 IU/L (46-116); ANION GAP 5 (8-16); ASPARTATE AMINO TRANSFERASE 41 U/L (10-37); BILIRUBIN,TOTAL 0.6 MG/DL (0.1-1.0); BLOOD UREA NITROGEN 49 MG/DL (7-18); BUN/CREATININE RATIO 49.5 (6.6-38.0); C-REACTIVE PROTEIN 4.65 MG/DL (0.0-0.5); CALCIUM 8.7 MG/DL (8.5-10.1); CHLORIDE 105 MMOL/L (99-107); CREATININE 0.99 MG/DL (0.40-0.90); GLUCOSE 110 MG/DL (70-104); POTASSIUM 4.4 MMOL/L (3.5-5.1); SODIUM 144 MMOL/L (135-145); TOTAL CARBON DIOXIDE 34.3 MMOL/L (24-32); TOTAL PROTEIN 6.2 G/DL (6.4-8.2); eGFR 58 ML/MIN
--- NOTE | 2021-04-20 08:30 | NUR ---
pT. ON BIPAP 85% FI02
[2021-04-20 08:55] LABS: D-DIMER 0.46 MG/L FEU (0-0.50)
[2021-04-20 10:00] VITALS: BP 98/47
[2021-04-20] MEDS: dexamethasone inj 6 MG in normal saline 50ml IV soln 50 ML IV SCH ×2 (10:01→19:48)
[2021-04-20] MEDS: lactobacillus rhamnosus 10,000 MMU CELLS/CAPSULE PO SCH ×2 (10:03→19:52)
[2021-04-20] MEDS: aspirin 81mg, enteric-coated 1 TAB TABLET.DR PO SCH (10:05)
[2021-04-20] MEDS: fenofibrate 145mg tablet PO SCH (10:08)
[2021-04-20] MEDS: ezetimibe 10mg tablet PO SCH (10:08)
[2021-04-20] MEDS: enoxaparin 60mg/0.6ml syringe SUBCUT SCH ×2 (10:10→19:58)
[2021-04-20] MEDS: REMDESIVIR INJ 100 MG in normal saline 100ml IV soln 80 ML IV SCH (10:42)
--- NOTE | 2021-04-20 12:02 | NUR ---
DM Consult: Pt A1C 7.7 w/ hx T2DM admit DX COVID-19. DM ed deferred at this time until more appropriate this admit. Addendum: 04/20/21 at [address] Amended: Links added.
[2021-04-20 14:00] VITALS: BP 104/41
[2021-04-20 18:00] VITALS: BP 142/70
--- NOTE | 2021-04-20 18:45 | NUR ---
Care released to Librado ALVA.
--- NOTE | 2021-04-20 19:01 | NUR ---
I have received report from ARTIE Mckeon and had the opportunity to ask questions and assume patient care.
[2021-04-20] MEDS: insulin Lispro (HumaLOG) vial - multi-dose SQ SCH ×2 (19:50→22:28)
[2021-04-20] MEDS: furosemide 20 MG/2 ML vial IV SCH (19:52)
[2021-04-20 22:00] VITALS: BP 151/76
[2021-04-20] MEDS: insulin glargine (Lantus) pen - multi-dose SQ SCH (22:30)
[2021-04-21] VITALS (8 sets, daily range): BP systolic 68–158; BP diastolic 55–87
--- NOTE | 2021-04-21 02:57 | NUR ---
Respiratory is handling BI pap, patient's saturations are sustaining at 86-88% on Non rebreather and High flow at 15 L. Per hospital policy this unit is not listed as a unit able to take bi pap. Respiratory is still at bedside and I will continue to monitoer oxygen saturations through the rest of my shift.
--- NOTE | 2021-04-21 03:42 | NUR ---
Patient is in bed with Bi Pap on in reverse [place]. Patient is saturating at 91% , resting comfortably.
--- NOTE | 2021-04-21 07:06 | NUR ---
Problems reprioritized. Patient report given, questions answered & plan of care reviewed with ARTIE Holman.
[2021-04-21] MEDS: ISOSORBIDE MONONITRATE 10 MG PO SCH (08:00)
[2021-04-21] MEDS: nitroGLYCERIN 0.2mg/hour patch TD SCH (08:21)
[2021-04-21] MEDS: furosemide 20 MG/2 ML vial IV SCH ×2 (08:21→22:10)
[2021-04-21] MEDS: aspirin 81mg, enteric-coated 1 TAB TABLET.DR PO SCH (08:21)
[2021-04-21] MEDS: enoxaparin 60mg/0.6ml syringe SUBCUT SCH ×2 (08:23→23:05)
[2021-04-21] MEDS: lisinopril 20mg tablet PO SCH (08:24)
[2021-04-21] MEDS: docusate sod 100mg capsule PO SCH ×2 (08:24→22:10)
[2021-04-21] MEDS: ezetimibe 10mg tablet PO SCH (08:24)
[2021-04-21] MEDS: dexamethasone inj 6 MG in normal saline 50ml IV soln 50 ML IV SCH (08:25)
[2021-04-21] MEDS: metoprolol tartrate 25mg tablet PO SCH ×2 (08:25→22:09)
[2021-04-21] MEDS: lactobacillus rhamnosus 10,000 MMU CELLS/CAPSULE PO SCH ×2 (08:25→22:09)
[2021-04-21 08:29] LABS: BASOPHILS % (AUTO) 0.1 % (0-1); EOSINOPHILS % (AUTO) 0 % (0-6); HEMATOCRIT 58.4 % (35.0-45.0); LYMPHOCYTES # (AUTO) 0.5 X10'3 (1.1-4.8); LYMPHOCYTES % (AUTO) 5.6 % (21-51); MEAN CORPUSCULAR HEMOGLOBIN 30.8 PG (27.0-31.0); MEAN CORPUSCULAR HGB CONC 32.4 g/dL (33.0-36.5); MEAN CORPUSCULAR VOLUME 94.9 FL (78-98); MONOCYTES # (AUTO) 1.1 X10'3 (0-0.9); NEUTROPHILS # (AUTO) 7.8 X10'3 (1.8-7.7); NEUTROPHILS % (AUTO) 82.3 % (42-75); PLATELET COUNT 178 X10'3 (140-440); RED BLOOD COUNT 6.15 X10'6 (4.20-5.60); RED CELL DISTRIBUTION WIDTH 15.6 % (11.5-14.5); WHITE BLOOD COUNT 9.4 X10'3 (4.5-11.0)
[2021-04-21 08:44] LABS: HEMOGLOBIN 18.9 g/dl (12.0-16.0)
--- NOTE | 2021-04-21 08:49 | NUR ---
PAGER ID: [phone] MESSAGE: Marilou Montano, [phone], pt has critical lab of hemoglobin 18.9, thank you. Manda Gonzalez [phone]
[2021-04-21] MEDS: insulin Lispro (HumaLOG) vial - multi-dose SQ SCH (08:56)
[2021-04-21] MEDS: pantoprazole 40mg Tablet.DR PO SCH (08:56)
[2021-04-21 08:57] LABS: ALANINE AMINOTRANSFERASE 26 U/L (12-78); ALBUMIN 2.4 G/DL (3.4-5.0); ALBUMIN/GLOBULIN RATIO 0.5 (1.1-1.5); ALKALINE PHOSPHATASE 75 IU/L (46-116); ANION GAP 5 (8-16); BILIRUBIN,TOTAL 0.9 MG/DL (0.1-1.0); BLOOD UREA NITROGEN 32 MG/DL (7-18); BUN/CREATININE RATIO 42.7 (6.6-38.0); C-REACTIVE PROTEIN 4.38 MG/DL (0.0-0.5); CALCIUM 8.6 MG/DL (8.5-10.1); CHLORIDE 104 MMOL/L (99-107); CREATININE 0.75 MG/DL (0.40-0.90); GLUCOSE 166 MG/DL (70-104); SODIUM 144 MMOL/L (135-145); TOTAL CARBON DIOXIDE 35.1 MMOL/L (24-32); TOTAL PROTEIN 6.8 G/DL (6.4-8.2); eGFR 80 ML/MIN
[2021-04-21] MEDS: REMDESIVIR INJ 100 MG in normal saline 100ml IV soln 80 ML IV SCH (08:57)
[2021-04-21 09:23] LABS: ASPARTATE AMINO TRANSFERASE 42 U/L (10-37); POTASSIUM 4.7 MMOL/L (3.5-5.1)
--- NOTE | 2021-04-21 10:00 | NUR ---
PT UNABLE TO EAT BREAKFAST D/T O2 DEMANDS. PT ON BIPAP.
[2021-04-21 10:29] LABS: D-DIMER 0.79 MG/L FEU (0-0.50)
[2021-04-21] MEDS ORDERED: furosemide 40mg/4ml inj IV ONE (11:15)
--- NOTE | 2021-04-21 14:40 | NUR ---
TELEPHONED PT'S SON, SEJAL BROOKS, [phone], PER PT'S REQUEST. MR. BROOKS UPDATED ON PT'S CONDITION.
[2021-04-21] MEDS: methylPREDNISolone sod succ 125mg/2ml vial IV SCH (16:06)
--- NOTE | 2021-04-21 18:14 | NUR ---
Problems reprioritized. Patient report given, questions answered & plan of care reviewed with ARTIE SIDHU.
--- NOTE | 2021-04-21 18:39 | NUR ---
Patient in room ORTHO 4017. I have received report from ARTIE Holman and had the opportunity to ask questions and assume patient care.
--- NOTE | 2021-04-21 19:50 | NUR ---
PT. SON WAS INFORMED OF HER TRANSFER.HE WILL CALLED IN 1 HOUR TO CHECK ON HIS MOM.
--- NOTE | 2021-04-21 19:55 | NUR ---
Problems reprioritized. Patient report given, questions answered & plan of care reviewed with ARTIE DEVI.
[2021-04-21 20:39] LABS: ABG BASE EXCESS 13.1 mmol/L (-2.0-2.0); ABG HCO3 39.8 mmol/L (22.0-26.0); ABG OXYGEN SATURATION 93.4 % (94-97); ABG PO2 (T) 66.9 mmHg (75.0-100.0); ALLEN'S TEST POSITIVE; FCOHb 0.3 % (0.0-3.9); FMetHb 0.4 % (0.0-1.5); FO2Hb 92.7 % (94-97); PATIENT TEMPERATURE 36.8; RESPIRATORY RATE 24 b/min
[2021-04-21] MEDS: insulin glargine (Lantus) pen - multi-dose SQ SCH (23:08)
[2021-04-22] VITALS (12 sets, daily range): BP systolic 100–170; BP diastolic 56–79
[2021-04-22] MEDS: methylPREDNISolone sod succ 125mg/2ml vial IV SCH ×4 (04:15→23:09)
[2021-04-22 06:22] LABS: BASOPHILS % (AUTO) 0.1 % (0-1); EOSINOPHILS % (AUTO) 0 % (0-6); HEMATOCRIT 57.7 % (35.0-45.0); LYMPHOCYTES # (AUTO) 0.5 X10'3 (1.1-4.8); LYMPHOCYTES % (AUTO) 6.7 % (21-51); MEAN CORPUSCULAR HGB CONC 32.1 g/dL (33.0-36.5); MEAN CORPUSCULAR VOLUME 96.5 FL (78-98); MEAN PLATELET VOLUME 7.8 FL (7.4-10.4); MONOCYTES # (AUTO) 1.3 X10'3 (0-0.9); MONOCYTES % (AUTO) 18.2 % (2-12); NEUTROPHILS # (AUTO) 5.2 X10'3 (1.8-7.7); PLATELET COUNT 169 X10'3 (140-440); RED BLOOD COUNT 5.98 X10'6 (4.20-5.60); RED CELL DISTRIBUTION WIDTH 15.4 % (11.5-14.5); WHITE BLOOD COUNT 6.9 X10'3 (4.5-11.0)
[2021-04-22 06:28] LABS: HEMOGLOBIN 18.5 g/dl (12.0-16.0)
[2021-04-22 06:31] LABS: D-DIMER 1.08 MG/L FEU (0-0.50)
[2021-04-22 06:39] LABS: ALANINE AMINOTRANSFERASE 19 U/L (12-78); ALBUMIN 2.2 G/DL (3.4-5.0); ALBUMIN/GLOBULIN RATIO 0.6 (1.1-1.5); ALKALINE PHOSPHATASE 69 IU/L (46-116); ANION GAP 0 (8-16); ASPARTATE AMINO TRANSFERASE 31 U/L (10-37); BILIRUBIN,TOTAL 0.9 MG/DL (0.1-1.0); BLOOD UREA NITROGEN 25 MG/DL (7-18); BUN/CREATININE RATIO 32.5 (6.6-38.0); C-REACTIVE PROTEIN 2.83 MG/DL (0.0-0.5); CALCIUM 8.4 MG/DL (8.5-10.1); CHLORIDE 108 MMOL/L (99-107); CREATININE 0.77 MG/DL (0.40-0.90); GLUCOSE 200 MG/DL (70-104); SODIUM 145 MMOL/L (135-145); TOTAL CARBON DIOXIDE 36.7 MMOL/L (24-32); TOTAL PROTEIN 6.2 G/DL (6.4-8.2); eGFR 78 ML/MIN
[2021-04-22] MEDS: fenofibrate 145mg tablet PO SCH (07:53)
[2021-04-22] MEDS: lisinopril 20mg tablet PO SCH (07:53)
[2021-04-22] MEDS: docusate sod 100mg capsule PO SCH ×2 (07:53→20:45)
[2021-04-22] MEDS: lactobacillus rhamnosus 10,000 MMU CELLS/CAPSULE PO SCH ×2 (07:53→20:46)
[2021-04-22] MEDS: pantoprazole 40mg Tablet.DR PO SCH (07:53)
[2021-04-22] MEDS: metoprolol tartrate 25mg tablet PO SCH ×2 (07:54→20:46)
[2021-04-22] MEDS: furosemide 20 MG/2 ML vial IV SCH ×2 (07:54→20:46)
[2021-04-22] MEDS: ISOSORBIDE MONONITRATE 10 MG PO SCH (07:54)
[2021-04-22] MEDS: enoxaparin 60mg/0.6ml syringe SUBCUT SCH ×2 (07:55→20:46)
[2021-04-22] MEDS: ezetimibe 10mg tablet PO SCH (07:55)
[2021-04-22] MEDS: nitroGLYCERIN 0.2mg/hour patch TD SCH ×3 (07:56→08:02)
[2021-04-22 09:18] LABS: MAGNESIUM 2.1 MG/DL (1.5-2.4)
[2021-04-22] MEDS: insulin Lispro (HumaLOG) vial - multi-dose SQ SCH ×3 (09:50→22:09)
--- NOTE | 2021-04-22 12:21 | NUR ---
Initial: Pt admit for acute respiratory failure with hypoxia, COVID PNA, and type II [place] with demand ischemia. Pt currently on a CHO controlled diet documented with 75% PO intake x 1 meal with 0-25% PO intake all surrounding meals. Noted pt unable to eat breakfast 04/21 d/t O2 demands per life management teacher. Pt would benefit from nutrition support to assist with meeting estimated nutrient needs if pt unable to tolerate PO intake r/t respiratory status, will place recommendations below. LBM 04/20, receiving routine bowel care. Will continue to follow closely. Recommendations: 1) Advance to regular diet to optimize PO intake 2) Consider nutrition support if pt unable to tolerate PO intake. IF TF, continuous Vital AF with goal rate of 50 mL/hr to begin at 20 mL/hr and advance by 30 mL Q8H as tolerated to goal rate. Once at goal to provide 1200 mL total volume/day, 1440 kcal, 90 g protein, and 973 mL water 3) IF TF, additional 200 mL water flush Q4H; monitor serum Na 4) IF unable to place NG tube, consider continuous TPN using 2:1 Clinimix-E 12/25 with goal rate of 75 mL/hr with additional 100 mL 20% intralipids with goal rate of 8.33 mL/hr for 12 hours/day. In total to provide 1900 mL total volume/day, 1478 kcal, 90 g AA, 270 g dextrose (1.47 mg/kg/min dext load), and 20 g lipids 5) IF nutrition support, prealbumin and TG q Sunday/; daily scaled weights 6) Routine bowel care 7) DM education once stable; A1c 7.7% Addendum: 04/22/21 at [address] Amended: Links added.
[2021-04-22] MEDS: NYSTATIN CREAM - 30GM TUBE TP SCH (16:10)
[2021-04-22] MEDS: insulin glargine (Lantus) pen - multi-dose SQ SCH (21:00)
[2021-04-23] VITALS (40 sets, daily range): BP systolic 90–152; BP diastolic 28–85
[2021-04-23 05:06] LABS: BASOPHILS % (AUTO) 0.2 % (0-1); EOSINOPHILS % (AUTO) 0 % (0-6); LYMPHOCYTES # (AUTO) 0.4 X10'3 (1.1-4.8); LYMPHOCYTES % (AUTO) 3.8 % (21-51); MEAN CORPUSCULAR HEMOGLOBIN 30.8 PG (27.0-31.0); MEAN CORPUSCULAR HGB CONC 32.3 g/dL (33.0-36.5); MEAN CORPUSCULAR VOLUME 95.5 FL (78-98); MEAN PLATELET VOLUME 8.1 FL (7.4-10.4); MONOCYTES # (AUTO) 1.1 X10'3 (0-0.9); NEUTROPHILS # (AUTO) 8.3 X10'3 (1.8-7.7); PLATELET COUNT 204 X10'3 (140-440); RED BLOOD COUNT 5.97 X10'6 (4.20-5.60); RED CELL DISTRIBUTION WIDTH 15.5 % (11.5-14.5); WHITE BLOOD COUNT 9.7 X10'3 (4.5-11.0)
[2021-04-23 05:15] LABS: C-REACTIVE PROTEIN 1.79 MG/DL (0.0-0.5)
[2021-04-23 05:17] LABS: HEMOGLOBIN 18.4 g/dl (12.0-16.0)
[2021-04-23 05:30] LABS: D-DIMER 1.31 MG/L FEU (0-0.50)
--- NOTE | 2021-04-23 06:00 | NUR ---
Patient in room CICU 2013. I have received report from Latoya ALVA and had the opportunity to ask questions and assume patient care.
[2021-04-23] MEDS: fenofibrate 145mg tablet PO SCH (07:36)
[2021-04-23] MEDS: lisinopril 20mg tablet PO SCH (07:36)
[2021-04-23] MEDS: metoprolol tartrate 25mg tablet PO SCH ×2 (07:36→20:00)
[2021-04-23] MEDS: lactobacillus rhamnosus 10,000 MMU CELLS/CAPSULE PO SCH ×2 (07:36→19:52)
[2021-04-23] MEDS: furosemide 20 MG/2 ML vial IV SCH ×2 (07:36→19:52)
[2021-04-23] MEDS: methylPREDNISolone sod succ 125mg/2ml vial IV SCH (07:36)
[2021-04-23] MEDS: pantoprazole 40mg Tablet.DR PO SCH (07:37)
[2021-04-23] MEDS: NYSTATIN CREAM - 30GM TUBE TP SCH (07:37)
[2021-04-23] MEDS: nitroGLYCERIN 0.2mg/hour patch TD SCH (07:37)
[2021-04-23] MEDS: docusate sod 100mg capsule PO SCH (07:37)
[2021-04-23] MEDS: ISOSORBIDE MONONITRATE 10 MG PO SCH (07:37)
[2021-04-23] MEDS: enoxaparin 60mg/0.6ml syringe SUBCUT SCH ×2 (07:38→19:52)
[2021-04-23] MEDS: ezetimibe 10mg tablet PO SCH (07:41)
[2021-04-23] MEDS: insulin Lispro (HumaLOG) vial - multi-dose SQ SCH (09:15)
[2021-04-23 09:48] LABS: ALANINE AMINOTRANSFERASE 23 U/L (12-78); ALBUMIN 2.3 G/DL (3.4-5.0); ALBUMIN/GLOBULIN RATIO 0.5 (1.1-1.5); ALKALINE PHOSPHATASE 74 IU/L (46-116); ANION GAP 8 (8-16); ASPARTATE AMINO TRANSFERASE 32 U/L (10-37); BILIRUBIN,TOTAL 1.1 MG/DL (0.1-1.0); BLOOD UREA NITROGEN 27 MG/DL (7-18); BUN/CREATININE RATIO 34.6 (6.6-38.0); CALCIUM 8.8 MG/DL (8.5-10.1); CHLORIDE 103 MMOL/L (99-107); CREATININE 0.78 MG/DL (0.40-0.90); GLUCOSE 111 MG/DL (70-104); POTASSIUM 3.7 MMOL/L (3.5-5.1); SODIUM 151 MMOL/L (135-145); TOTAL CARBON DIOXIDE 39.9 MMOL/L (24-32); TOTAL PROTEIN 6.5 G/DL (6.4-8.2); eGFR 77 ML/MIN
--- NOTE | 2021-04-23 11:29 | NUR ---
Spoke with pt and son Miguel about pt needing possible intubation. Pt and son aware and was given the opportunity to ask questions.
--- NOTE | 2021-04-23 12:38 | NUR ---
pt getting intubated at 1138 meds started--40mg of etomidate and 50mg of ronel given per Dr. Baum. Addendum: 04/23/21 at 1239 by Yaquelin Patel RN Time of intubation 1145.
[2021-04-23] MEDS ORDERED: NORepinephrine 8mg/ 250ml NS 250 ML IV ONE (12:48)
[2021-04-23] MEDS ORDERED: NOREPINEPHRINE BITARTRATE/D5W 250 ML IV SCH (13:00)
[2021-04-23] MEDS: NORepinephrine 8mg/ 250ml NS 250 ML IV SCH ×2 (13:30→23:52)
[2021-04-23 13:49] LABS: ABG BASE EXCESS 12.4 mmol/L (-2.0-2.0); ABG HCO3 42.2 mmol/L (22.0-26.0); ABG OXYGEN SATURATION 83.1 % (94-97); ABG PCO2 (T) 68.4 mmHg (32.0-45.0); ALLEN'S TEST POSITIVE; FCOHb 0.1 % (0.0-3.9); FMetHb 0.3 % (0.0-1.5); FO2Hb 82.8 % (94-97); PATIENT TEMPERATURE 37.1; PEEP 12 cm H2O; RESPIRATORY RATE 18 b/min; TIDAL VOLUME 400 mL; TOTAL HEMOGLOBIN 21.5 G/dl (12.0-16.0)
--- NOTE | 2021-04-23 14:24 | NUR ---
Spoke with son Miguel and gave update that pt is now intubated. Son had the opportunity to ask questions.
[2021-04-23] MEDS: FENTANYL-0.9 % NACL/PF 100 ML IV PRN ×4 (14:32→22:38)
[2021-04-23] MEDS: midazolam 100mg in NS 100ml 100 ML IV PRN ×3 (14:32→22:37)
[2021-04-23] MEDS: CISatracurium besylate inj. 100 MG in normal saline 100ml IV soln 90 ML IV PRN ×2 (14:33→23:53)
[2021-04-23] MEDS: insulin regular, human U-100 3ml vial - multi-dose SQ SCH (14:55)
[2021-04-23] MEDS: methylPREDNISolone sod succ/PF 40mg inj. IV SCH ×2 (15:30→23:51)
[2021-04-23] MEDS ORDERED: insulin regular, human U-100 3ml vial - multi-dose SQ SCH (17:00)
--- NOTE | 2021-04-23 18:25 | NUR ---
Problems reprioritized. Patient report given, questions answered & plan of care reviewed with Latoya ALVA.
[2021-04-23] MEDS ORDERED: insulin Lispro (HumaLOG) vial - multi-dose SQ SCH (20:00)
[2021-04-23 20:19] LABS: ABG BASE EXCESS 5.2 mmol/L (-2.0-2.0); ABG HCO3 37.8 mmol/L (22.0-26.0); ABG OXYGEN SATURATION 88.7 % (94-97); ABG PCO2 (T) 87.9 mmHg (32.0-45.0); ABG PO2 (T) 65.4 mmHg (75.0-100.0); ALLEN'S TEST POSITIVE; FCOHb 0.3 % (0.0-3.9); FMetHb 0.6 % (0.0-1.5); FO2Hb 87.9 % (94-97); PATIENT TEMPERATURE 36.7; PEEP 18 cm H2O; RESPIRATORY RATE 22 b/min; TIDAL VOLUME 300 mL; TOTAL HEMOGLOBIN 20.6 G/dl (12.0-16.0)
[2021-04-23] MEDS: docusate sodium 100mg/10ml UD cup PO SCH (21:22)
[2021-04-23] MEDS: insulin glargine (Lantus) pen - multi-dose SQ SCH (21:36)
[2021-04-23 23:17] LABS: ALANINE AMINOTRANSFERASE 18 U/L (12-78); ALBUMIN 2.3 G/DL (3.4-5.0); ALBUMIN/GLOBULIN RATIO 0.5 (1.1-1.5); ALKALINE PHOSPHATASE 83 IU/L (46-116); ANION GAP 6 (8-16); ASPARTATE AMINO TRANSFERASE 31 U/L (10-37); BLOOD UREA NITROGEN 38 MG/DL (7-18); CALCIUM 8.3 MG/DL (8.5-10.1); CHLORIDE 102 MMOL/L (99-107); CREATININE 1.52 MG/DL (0.40-0.90); GLUCOSE 284 MG/DL (70-104); POTASSIUM 3.7 MMOL/L (3.5-5.1); SODIUM 146 MMOL/L (135-145); TOTAL CARBON DIOXIDE 38.5 MMOL/L (24-32); TOTAL PROTEIN 6.6 G/DL (6.4-8.2); eGFR 36 ML/MIN
[2021-04-23 23:19] LABS: MAGNESIUM 2.2 MG/DL (1.5-2.4)
[2021-04-23 23:28] LABS: TROPONIN I 2.42 NG/ML (0.0-0.05)
--- NOTE | 2021-04-23 23:42 | NUR ---
Spoke with Dr. Kasper re: lab results, change in cardiac rhythm, elevated troponin, low urine output and labile BP with levophed. No new orders noted at this time
[2021-04-24] VITALS (41 sets, daily range): BP systolic 93–124; BP diastolic 41–70
[2021-04-24] MEDS: FENTANYL-0.9 % NACL/PF 100 ML IV PRN ×7 (02:14→23:51)
[2021-04-24 03:21] LABS: ABG BASE EXCESS 5.6 mmol/L (-2.0-2.0); ABG HCO3 35.7 mmol/L (22.0-26.0); ABG OXYGEN SATURATION 87.6 % (94-97); ABG PCO2 (T) 73.4 mmHg (32.0-45.0); ABG PO2 (T) 60.7 mmHg (75.0-100.0); ALLEN'S TEST POSITIVE; FCOHb 0.3 % (0.0-3.9); FMetHb 0.5 % (0.0-1.5); FO2Hb 86.9 % (94-97); PATIENT TEMPERATURE 37.5; PEEP 18 cm H2O; RESPIRATORY RATE 24 b/min; TOTAL HEMOGLOBIN 19.7 G/dl (12.0-16.0)
[2021-04-24] MEDS: CISatracurium besylate inj. 100 MG in normal saline 100ml IV soln 90 ML IV PRN ×2 (03:28→22:47)
[2021-04-24 03:44] LABS: BASOPHILS # (AUTO) 0.1 X10'3 (0-0.2); BASOPHILS % (AUTO) 0.4 % (0-1); EOSINOPHILS % (AUTO) 0 % (0-6); HEMATOCRIT 57.6 % (35.0-45.0); LYMPHOCYTES # (AUTO) 0.3 X10'3 (1.1-4.8); LYMPHOCYTES % (AUTO) 1.4 % (21-51); MEAN CORPUSCULAR HEMOGLOBIN 30.6 PG (27.0-31.0); MEAN CORPUSCULAR HGB CONC 31.6 g/dL (33.0-36.5); MEAN CORPUSCULAR VOLUME 96.9 FL (78-98); MEAN PLATELET VOLUME 8.2 FL (7.4-10.4); MONOCYTES # (AUTO) 2.5 X10'3 (0-0.9); MONOCYTES % (AUTO) 12.3 % (2-12); NEUTROPHILS # (AUTO) 17.7 X10'3 (1.8-7.7); NEUTROPHILS % (AUTO) 85.9 % (42-75); PLATELET COUNT 264 X10'3 (140-440); RED BLOOD COUNT 5.94 X10'6 (4.20-5.60); RED CELL DISTRIBUTION WIDTH 15.7 % (11.5-14.5); WHITE BLOOD COUNT 20.6 X10'3 (4.5-11.0)
[2021-04-24 03:56] LABS: HEMOGLOBIN 18.2 g/dl (12.0-16.0)
[2021-04-24 04:30] LABS: D-DIMER 1.46 MG/L FEU (0-0.50)
[2021-04-24] MEDS: midazolam 100mg in NS 100ml 100 ML IV PRN ×2 (04:48→12:28)
[2021-04-24 05:04] LABS: PLATELET ESTIMATE NORMAL; TOTAL CELLS COUNTED 100
--- NOTE | 2021-04-24 06:00 | NUR ---
Patient in room CICU 2013. I have received report from Latoya ALVA and had the opportunity to ask questions and assume patient care.
[2021-04-24] MEDS: pantoprazole 40mg Tablet.DR PO SCH (07:30)
[2021-04-24] MEDS: ISOSORBIDE MONONITRATE 10 MG PO SCH (08:00)
[2021-04-24] MEDS: lisinopril 20mg tablet PO SCH (08:00)
[2021-04-24] MEDS: lactobacillus rhamnosus 10,000 MMU CELLS/CAPSULE PO SCH (08:00)
[2021-04-24] MEDS: fenofibrate 145mg tablet PO SCH (08:00)
[2021-04-24] MEDS: ezetimibe 10mg tablet PO SCH (08:00)
[2021-04-24] MEDS: docusate sodium 100mg/10ml UD cup PO SCH (08:00)
[2021-04-24] MEDS: nitroGLYCERIN 0.2mg/hour patch TD SCH (08:00)
[2021-04-24] MEDS: metoprolol tartrate 25mg tablet PO SCH (08:00)
[2021-04-24] MEDS: furosemide 20 MG/2 ML vial IV SCH ×2 (08:23→19:51)
[2021-04-24] MEDS: methylPREDNISolone sod succ/PF 40mg inj. IV SCH ×3 (08:23→23:50)
[2021-04-24] MEDS: enoxaparin 60mg/0.6ml syringe SUBCUT SCH ×2 (08:23→19:51)
[2021-04-24] MEDS: NYSTATIN CREAM - 30GM TUBE TP SCH (08:25)
[2021-04-24 09:42] LABS: ALANINE AMINOTRANSFERASE 16 U/L (12-78); ALBUMIN 1.8 G/DL (3.4-5.0); ALBUMIN/GLOBULIN RATIO 0.5 (1.1-1.5); ALKALINE PHOSPHATASE 69 IU/L (46-116); ANION GAP 1 (8-16); ASPARTATE AMINO TRANSFERASE 46 U/L (10-37); BLOOD UREA NITROGEN 33 MG/DL (7-18); BUN/CREATININE RATIO 30.6 (6.6-38.0); CALCIUM 7.5 MG/DL (8.5-10.1); CHLORIDE 107 MMOL/L (99-107); CREATININE 1.08 MG/DL (0.40-0.90); GLUCOSE 225 MG/DL (70-104); POTASSIUM 3.3 MMOL/L (3.5-5.1); SODIUM 147 MMOL/L (135-145); TOTAL CARBON DIOXIDE 38.8 MMOL/L (24-32); TOTAL PROTEIN 5.6 G/DL (6.4-8.2); eGFR 53 ML/MIN
[2021-04-24 10:08] LABS: OXYGEN SATURATION (MIXED VEN) 73.3 % (60-80); PO2 MIXED VENOUS (TEMP COR) 43.4 mmHg (35-46)
[2021-04-24] MEDS: NORepinephrine 8mg/ 250ml NS 250 ML IV SCH ×2 (10:22→20:20)
--- NOTE | 2021-04-24 10:35 | NUR ---
TF Consult: Pt intubated 04/23 w/ NGT in place and feeding to start today per RN; see recs below given pt needs. Will monitor for TF tolerance and adjust needs as medically indicated. Recommendations: 1) Continuous TF using Vital AF with goal rate of 50 mL/hr to begin at 20 mL/hr and advance by 30 mL Q8H as tolerated to goal rate. Once at goal to provide 1200 mL total volume/day, 1440 kcal, 90 g protein, and 973 mL water 2) Additional 200 mL water flush Q4H; monitor serum Na 3) prealbumin and q Sunday/; daily scaled weights 4) Routine bowel care 5) Monitor TF tolerance 6) DM education once stable; A1c 7.7% Addendum: 04/24/21 at [address] Amended: Links added.
[2021-04-24] MEDS ORDERED: potassium Cl 40MEQ/1/2NS 520ml 520 ML IV PRN (11:10)
[2021-04-24] MEDS ORDERED: acetaminophen 325mg tablet NG PRN ×2 (11:25)
[2021-04-24] MEDS ORDERED: dextrose ORAL solution 15 GM/59 ML bottle NG PRN ×2 (11:25→11:26)
[2021-04-24] MEDS ORDERED: magnesium hydroxide 30ml (MOM) UD suspension NG PRN (11:26)
[2021-04-24] MEDS ORDERED: diphenhydrAMINE 25 MG/10 ML UD oral solution NG PRN (11:27)
[2021-04-24] MEDS ORDERED: mag hydrox/Alum hydrox/simeth 30ml oral suspension NG PRN (11:28)
[2021-04-24] MEDS ORDERED: ondansetron 4mg rapidly disintigrating tab NG PRN (11:30)
[2021-04-24] MEDS ORDERED: insulin regular, human U-100 3ml vial - multi-dose SQ PRN (11:30)
[2021-04-24] MEDS ORDERED: temazepam 15mg capsule NG PRN (11:30)
[2021-04-24] MEDS ORDERED: insulin regular, human U-100 3ml vial - multi-dose SQ SCH (12:00)
--- NOTE | 2021-04-24 12:30 | NUR ---
Spoke with son Miguel over the phone and gave update. Pt went into rapid afib with [facility], informed Dr. Bautista MD ordered alyssa hudson and wanted to speak with son over the phone to discuss plan of care. Miguel stated he spoke with Dr. Baum over the phone and they decided to make pt DNR.
[2021-04-24] MEDS: diltiazem-NS 100mg/100ml 100 ML IV SCH ×2 (12:38→20:29)
[2021-04-24] MEDS: vancomycin/NS 1 GM ADD-VANTAGE 250 ML X 1 DOSE IV SCH ×2 (13:21→20:23)
[2021-04-24] MEDS: insulin regular, human U-100 3ml vial - multi-dose SQ SCH ×2 (13:33→20:36)
[2021-04-24] MEDS: mineral oil/petrolatum ophthal oint EACHEYE SCH ×2 (14:14→19:52)
--- NOTE | 2021-04-24 18:28 | NUR ---
Problems reprioritized. Patient report given, questions answered & plan of care reviewed with Cristal ALVA.
--- NOTE | 2021-04-24 18:30 | NUR ---
Patient in room CICU 2013. I have received report from ARTIE Jamison and had the opportunity to ask questions and assume patient care.
[2021-04-24] MEDS: metoprolol tartrate 25mg tablet NG SCH (19:51)
[2021-04-24] MEDS: lactobacillus rhamnosus 10,000 MMU CELLS/CAPSULE NG SCH (19:52)
[2021-04-24] MEDS: docusate sodium 100mg/10ml UD cup NG SCH (19:52)
[2021-04-24] MEDS ORDERED: VANCOmycin 1250MG/NS 250ml Bag 250 ML IV SCH (20:00)
[2021-04-24] MEDS: insulin glargine (Lantus) pen - multi-dose SQ SCH (20:35)
[2021-04-25] VITALS (24 sets, daily range): BP systolic 100–135; BP diastolic 43–72
[2021-04-25 02:26] LABS: ABG BASE EXCESS 8.6 mmol/L (-2.0-2.0); ABG OXYGEN SATURATION 88.3 % (94-97); ABG PCO2 (T) 82.5 mmHg (32.0-45.0); ABG PO2 (T) 58.8 mmHg (75.0-100.0); ALLEN'S TEST POSITIVE; FCOHb 0.3 % (0.0-3.9); FMetHb 0.4 % (0.0-1.5); FO2Hb 87.7 % (94-97); PATIENT TEMPERATURE 37.2; PEEP 18 cm H2O; RESPIRATORY RATE 24 b/min; TIDAL VOLUME 300 mL; TOTAL HEMOGLOBIN 19.7 G/dl (12.0-16.0)
[2021-04-25] MEDS: insulin regular, human U-100 3ml vial - multi-dose SQ SCH ×4 (02:53→19:37)
[2021-04-25] MEDS: mineral oil/petrolatum ophthal oint EACHEYE SCH ×4 (02:54→19:52)
[2021-04-25 02:59] LABS: BASOPHILS % (AUTO) 0.1 % (0-1); EOSINOPHILS % (AUTO) 0 % (0-6); HEMOGLOBIN 17.2 g/dl (12.0-16.0); LYMPHOCYTES # (AUTO) 0.3 X10'3 (1.1-4.8); LYMPHOCYTES % (AUTO) 1.4 % (21-51); MEAN CORPUSCULAR HEMOGLOBIN 31.1 PG (27.0-31.0); MEAN CORPUSCULAR HGB CONC 31.8 g/dL (33.0-36.5); MEAN CORPUSCULAR VOLUME 97.7 FL (78-98); MEAN PLATELET VOLUME 9.1 FL (7.4-10.4); MONOCYTES # (AUTO) 1.8 X10'3 (0-0.9); MONOCYTES % (AUTO) 9.5 % (2-12); NEUTROPHILS # (AUTO) 16.8 X10'3 (1.8-7.7); PLATELET COUNT 230 X10'3 (140-440); RED BLOOD COUNT 5.52 X10'6 (4.20-5.60); RED CELL DISTRIBUTION WIDTH 15.5 % (11.5-14.5); WHITE BLOOD COUNT 18.9 X10'3 (4.5-11.0)
[2021-04-25 03:11] LABS: D-DIMER 1.12 MG/L FEU (0-0.50)
[2021-04-25] MEDS: midazolam 100mg in NS 100ml 100 ML IV PRN ×3 (03:24→17:32)
[2021-04-25 03:38] LABS: C-REACTIVE PROTEIN 10.56 MG/DL (0.0-0.5); PREALBUMIN 12.7 MG/DL (19-36)
[2021-04-25 04:01] LABS: ALANINE AMINOTRANSFERASE 14 U/L (12-78); ALBUMIN 1.7 G/DL (3.4-5.0); ALBUMIN/GLOBULIN RATIO 0.4 (1.1-1.5); ALKALINE PHOSPHATASE 70 IU/L (46-116); ANION GAP 2 (8-16); ASPARTATE AMINO TRANSFERASE 35 U/L (10-37); BILIRUBIN,TOTAL 0.9 MG/DL (0.1-1.0); BLOOD UREA NITROGEN 35 MG/DL (7-18); BUN/CREATININE RATIO 31.3 (6.6-38.0); CALCIUM 7.7 MG/DL (8.5-10.1); CHLORIDE 109 MMOL/L (99-107); CREATININE 1.12 MG/DL (0.40-0.90); GLUCOSE 263 MG/DL (70-104); MAGNESIUM 2.2 MG/DL (1.5-2.4); PHOSPHORUS 2.6 MG/DL (2.3-4.5); POTASSIUM 3.5 MMOL/L (3.5-5.1); SODIUM 147 MMOL/L (135-145); TOTAL CARBON DIOXIDE 36.5 MMOL/L (24-32); TOTAL PROTEIN 5.6 G/DL (6.4-8.2); eGFR 51 ML/MIN
[2021-04-25] MEDS: FENTANYL-0.9 % NACL/PF 100 ML IV PRN ×3 (05:53→17:14)
--- NOTE | 2021-04-25 06:00 | NUR ---
Patient in room CICU 2013. I have received report from Cristal ALVA and had the opportunity to ask questions and assume patient care.
--- NOTE | 2021-04-25 06:23 | NUR ---
Problems reprioritized. Patient report given, questions answered & plan of care reviewed with ARTIE Jamison.
[2021-04-25] MEDS: NORepinephrine 8mg/ 250ml NS 250 ML IV SCH ×3 (06:49→19:56)
[2021-04-25] MEDS: enoxaparin 60mg/0.6ml syringe SUBCUT SCH ×2 (07:53→19:52)
[2021-04-25] MEDS: pantoprazole 40 MG vial IV SCH (07:53)
[2021-04-25] MEDS: methylPREDNISolone sod succ/PF 40mg inj. IV SCH (07:53)
[2021-04-25] MEDS: docusate sodium 100mg/10ml UD cup NG SCH ×2 (07:53→19:50)
[2021-04-25] MEDS: lactobacillus rhamnosus 10,000 MMU CELLS/CAPSULE NG SCH ×2 (07:54→19:50)
[2021-04-25] MEDS: furosemide 20 MG/2 ML vial IV SCH ×2 (07:54→19:51)
[2021-04-25] MEDS: fenofibrate 145mg tablet NG SCH (07:54)
[2021-04-25] MEDS: ezetimibe 10mg tablet NG SCH (07:54)
[2021-04-25] MEDS: K and/or MAG REPLACEMENT MC SCH (07:55)
[2021-04-25] MEDS: lisinopril 20mg tablet NG SCH (07:55)
[2021-04-25] MEDS: metoprolol tartrate 25mg tablet NG SCH ×2 (07:55→19:51)
[2021-04-25] MEDS: ISOSORBIDE MONONITRATE 10 MG NG SCH (07:55)
[2021-04-25] MEDS: nitroGLYCERIN 0.2mg/hour patch TD SCH (07:56)
[2021-04-25] MEDS: NYSTATIN CREAM - 30GM TUBE TP SCH (07:56)
--- NOTE | 2021-04-25 09:15 | NUR ---
Informed Dr. Duncan of positive blood culture-gram + cocci in clusters. No new orders at this time.
[2021-04-25] MEDS: vancomycin/NS 1 GM ADD-VANTAGE 250 ML X 1 DOSE IV SCH ×2 (09:22→22:00)
--- NOTE | 2021-04-25 12:04 | NUR ---
F/u: Pt TF recs adjusted to further optimize protein needs on vent. PARTH d/w RN new recs Vital High Protein at 50ml/hr goal. Pt tolerating initial rate w/ prior Vital AF and TF to advance to goal today. Will monitor for further TF adjustment needs as medically indicated. Recommendations: 1) Continuous TF using Vital High Protein at 50 mL/hr goal. To provide 1200mL volume/day, 1200 kcal, 105g protein, and 1008mL water 2) Additional 200 mL water flush Q4H; monitor serum Na 3) prealbumin and q Sunday/; daily scaled weights 4) Routine bowel care 5) Monitor TF tolerance 6) DM education once more appropriate following extubation; A1c 7.7% Addendum: 04/25/21 at [address] Amended: Links added.
[2021-04-25] MEDS: methylPREDNISolone sod succ 125mg/2ml vial IV SCH ×2 (13:25→19:50)
[2021-04-25] MEDS: CISatracurium besylate inj. 100 MG in normal saline 100ml IV soln 90 ML IV PRN (15:43)
--- NOTE | 2021-04-25 18:34 | NUR ---
Problems reprioritized. Patient report given, questions answered & plan of care reviewed with Theo ALVA.
[2021-04-25] MEDS: insulin glargine (Lantus) pen - multi-dose SQ SCH (19:37)
[2021-04-25] MEDS ORDERED: VANCOMYCIN LEVEL IV ONE (21:30)
[2021-04-26] VITALS (24 sets, daily range): BP systolic 96–156; BP diastolic 38–87
[2021-04-26] MEDS: insulin regular, human U-100 3ml vial - multi-dose SQ SCH ×4 (02:49→20:01)
[2021-04-26] MEDS: mineral oil/petrolatum ophthal oint EACHEYE SCH ×4 (02:51→20:23)
[2021-04-26] MEDS: methylPREDNISolone sod succ 125mg/2ml vial IV SCH ×4 (02:52→20:21)
[2021-04-26 03:14] LABS: ABG HCO3 46.7 mmol/L (22.0-26.0); ABG OXYGEN SATURATION 98.5 % (94-97); ABG PCO2 (T) 102.9 mmHg (32.0-45.0); ABG PO2 (T) 143.4 mmHg (75.0-100.0); ALLEN'S TEST POSITIVE; FCOHb 0.3 % (0.0-3.9); FMetHb 0.7 % (0.0-1.5); FO2Hb 97.5 % (94-97); PATIENT TEMPERATURE 37.7; PEEP 18 cm H2O; RESPIRATORY RATE 24 b/min; TIDAL VOLUME 300 mL; TOTAL HEMOGLOBIN 19.6 G/dl (12.0-16.0)
[2021-04-26 04:05] LABS: D-DIMER 1.14 MG/L FEU (0-0.50)
[2021-04-26 04:11] LABS: ALANINE AMINOTRANSFERASE 19 U/L (12-78); ALBUMIN 1.8 G/DL (3.4-5.0); ALBUMIN/GLOBULIN RATIO 0.4 (1.1-1.5); ALKALINE PHOSPHATASE 84 IU/L (46-116); ANION GAP -2 (8-16); ASPARTATE AMINO TRANSFERASE 32 U/L (10-37); BASOPHILS % (AUTO) 0.1 % (0-1); BILIRUBIN,TOTAL 0.8 MG/DL (0.1-1.0); BLOOD UREA NITROGEN 38 MG/DL (7-18); BUN/CREATININE RATIO 35.2 (6.6-38.0); CALCIUM 8.9 MG/DL (8.5-10.1); CHLORIDE 112 MMOL/L (99-107); CREATININE 1.08 MG/DL (0.40-0.90); EOSINOPHILS % (AUTO) 0 % (0-6); GLUCOSE 222 MG/DL (70-104); HEMOGLOBIN 17.4 g/dl (12.0-16.0); LYMPHOCYTES # (AUTO) 0.2 X10'3 (1.1-4.8); LYMPHOCYTES % (AUTO) 1.2 % (21-51); MEAN CORPUSCULAR HEMOGLOBIN 30.5 PG (27.0-31.0); MEAN CORPUSCULAR VOLUME 98.3 FL (78-98); MONOCYTES # (AUTO) 1.5 X10'3 (0-0.9); MONOCYTES % (AUTO) 8.4 % (2-12); NEUTROPHILS # (AUTO) 16.4 X10'3 (1.8-7.7); NEUTROPHILS % (AUTO) 90.3 % (42-75); PLATELET COUNT 230 X10'3 (140-440); POTASSIUM 4.3 MMOL/L (3.5-5.1); RED CELL DISTRIBUTION WIDTH 15.6 % (11.5-14.5); SODIUM 154 MMOL/L (135-145); TOTAL PROTEIN 6.2 G/DL (6.4-8.2); WHITE BLOOD COUNT 18.2 X10'3 (4.5-11.0); eGFR 53 ML/MIN
[2021-04-26 04:13] LABS: TOTAL CARBON DIOXIDE 43.8 MMOL/L (24-32)
[2021-04-26] MEDS: diltiazem-NS 100mg/100ml 100 ML IV SCH (04:30)
--- NOTE | 2021-04-26 06:30 | NUR ---
Patient in room CICU 2013. I have received report from Theo ALVA and had the opportunity to ask questions and assume patient care.
[2021-04-26] MEDS: CISatracurium besylate inj. 100 MG in normal saline 100ml IV soln 90 ML IV PRN (06:31)
[2021-04-26] MEDS: midazolam 100mg in NS 100ml 100 ML IV PRN ×2 (07:07→16:09)
[2021-04-26 07:43] LABS: C-REACTIVE PROTEIN 8.49 MG/DL (0.0-0.5); MAGNESIUM 2.6 MG/DL (1.5-2.4); PHOSPHORUS 2.4 MG/DL (2.3-4.5)
[2021-04-26] MEDS: lisinopril 20mg tablet NG SCH (08:00)
[2021-04-26] MEDS: ISOSORBIDE MONONITRATE 10 MG NG SCH (08:00)
[2021-04-26] MEDS: furosemide 20 MG/2 ML vial IV SCH (08:00)
[2021-04-26] MEDS: nitroGLYCERIN 0.2mg/hour patch TD SCH (08:00)
[2021-04-26] MEDS: K and/or MAG REPLACEMENT MC SCH (08:00)
[2021-04-26] MEDS: ezetimibe 10mg tablet NG SCH (08:54)
[2021-04-26] MEDS: docusate sodium 100mg/10ml UD cup NG SCH (08:54)
[2021-04-26] MEDS: fenofibrate 145mg tablet NG SCH (08:54)
[2021-04-26] MEDS: lactobacillus rhamnosus 10,000 MMU CELLS/CAPSULE NG SCH (08:54)
[2021-04-26] MEDS: pantoprazole 40 MG vial IV SCH (08:55)
[2021-04-26] MEDS: enoxaparin 60mg/0.6ml syringe SUBCUT SCH ×2 (08:55→20:21)
[2021-04-26] MEDS: FENTANYL-0.9 % NACL/PF 100 ML IV PRN ×3 (08:56→16:36)
[2021-04-26] MEDS: metoprolol tartrate 25mg tablet NG SCH (08:56)
[2021-04-26] MEDS: NYSTATIN CREAM - 30GM TUBE TP SCH (09:22)
[2021-04-26] MEDS: NORepinephrine 8mg/ 250ml NS 250 ML IV SCH (09:51)
[2021-04-26] MEDS: VANCOmycin 1250MG/NS 250ml Bag 250 ML IV SCH ×2 (10:54→22:01)
[2021-04-26] MEDS ORDERED: dextrose ORAL solution 15 GM/59 ML bottle OGT PRN ×2 (13:58)
[2021-04-26] MEDS ORDERED: diphenhydrAMINE 25 MG/10 ML UD oral solution OGT PRN (13:59)
[2021-04-26] MEDS ORDERED: acetaminophen 325mg/10.15ml oral unit dose solution OGT PRN (14:00)
[2021-04-26] MEDS ORDERED: ondansetron 4mg rapidly disintigrating tab OGT PRN (14:01)
[2021-04-26] MEDS ORDERED: magnesium hydroxide 30ml (MOM) UD suspension OGT PRN (14:01)
[2021-04-26] MEDS ORDERED: mag hydrox/Alum hydrox/simeth 30ml oral suspension OGT PRN (14:01)
[2021-04-26] MEDS: normal saline 1000ml 1,000 ML IV SCH (14:13)
--- NOTE | 2021-04-26 17:21 | NUR ---
Titrated Fentanyl & Versed down d/t BIS in 20's. Nimbex also titrated down d/t train of four 0/10. Patient converted from atrial flutter into sinus rhythm. Levophed continues d/t hypotension. FiO2 titrated to 85%. Suctioned for thick creamy/lynch with blood secretions. Blood from nares. Nares packed with gauze. IV fluids started.
--- NOTE | 2021-04-26 18:17 | NUR ---
Problems reprioritized. Patient report given, questions answered & plan of care reviewed with Theo ALVA.
[2021-04-26] MEDS: insulin glargine (Lantus) pen - multi-dose SQ SCH (20:06)
[2021-04-26] MEDS: lactobacillus rhamnosus 10,000 MMU CELLS/CAPSULE OGT SCH (20:22)
[2021-04-26] MEDS: docusate sodium 100mg/10ml UD cup OGT SCH (20:22)
[2021-04-26] MEDS: metoprolol tartrate 25mg tablet OGT SCH (20:23)
[2021-04-27] VITALS (24 sets, daily range): BP systolic 92–152; BP diastolic 37–84
[2021-04-27] MEDS: diltiazem-NS 100mg/100ml 100 ML IV SCH (00:30)
[2021-04-27] MEDS: NORepinephrine 8mg/ 250ml NS 250 ML IV SCH ×3 (00:53→22:02)
[2021-04-27] MEDS: CISatracurium besylate inj. 100 MG in normal saline 100ml IV soln 90 ML IV PRN (00:58)
[2021-04-27] MEDS: normal saline 1000ml 1,000 ML IV SCH ×2 (01:00→09:28)
[2021-04-27] MEDS: mineral oil/petrolatum ophthal oint EACHEYE SCH ×4 (01:11→19:48)
[2021-04-27] MEDS: methylPREDNISolone sod succ 125mg/2ml vial IV SCH ×4 (01:11→19:48)
[2021-04-27 02:01] LABS: BASOPHILS % (AUTO) 0.1 % (0-1); EOSINOPHILS % (AUTO) 0 % (0-6); HEMOGLOBIN 16.2 g/dl (12.0-16.0); LYMPHOCYTES # (AUTO) 0.3 X10'3 (1.1-4.8); LYMPHOCYTES % (AUTO) 1.7 % (21-51); MEAN CORPUSCULAR HEMOGLOBIN 30.4 PG (27.0-31.0); MEAN CORPUSCULAR HGB CONC 31.1 g/dL (33.0-36.5); MEAN CORPUSCULAR VOLUME 97.7 FL (78-98); MEAN PLATELET VOLUME 8.6 FL (7.4-10.4); MONOCYTES # (AUTO) 1.1 X10'3 (0-0.9); MONOCYTES % (AUTO) 5.8 % (2-12); NEUTROPHILS # (AUTO) 16.9 X10'3 (1.8-7.7); NEUTROPHILS % (AUTO) 92.4 % (42-75); PLATELET COUNT 180 X10'3 (140-440); RED BLOOD COUNT 5.32 X10'6 (4.20-5.60); RED CELL DISTRIBUTION WIDTH 15.7 % (11.5-14.5); WHITE BLOOD COUNT 18.3 X10'3 (4.5-11.0)
[2021-04-27] MEDS: insulin regular, human U-100 3ml vial - multi-dose SQ SCH ×4 (02:11→20:45)
[2021-04-27 02:14] LABS: D-DIMER 1.38 MG/L FEU (0-0.50)
[2021-04-27 02:17] LABS: ALANINE AMINOTRANSFERASE 17 U/L (12-78); ALBUMIN 1.5 G/DL (3.4-5.0); ALBUMIN/GLOBULIN RATIO 0.4 (1.1-1.5); ALKALINE PHOSPHATASE 77 IU/L (46-116); ANION GAP -4 (8-16); ASPARTATE AMINO TRANSFERASE 29 U/L (10-37); BILIRUBIN,TOTAL 0.8 MG/DL (0.1-1.0); BLOOD UREA NITROGEN 34 MG/DL (7-18); BUN/CREATININE RATIO 36.2 (6.6-38.0); C-REACTIVE PROTEIN 6.63 MG/DL (0.0-0.5); CALCIUM 8.7 MG/DL (8.5-10.1); CHLORIDE 115 MMOL/L (99-107); CREATININE 0.94 MG/DL (0.40-0.90); GLUCOSE 252 MG/DL (70-104); MAGNESIUM 2.4 MG/DL (1.5-2.4); PHOSPHORUS 2.3 MG/DL (2.3-4.5); POTASSIUM 4.9 MMOL/L (3.5-5.1); SODIUM 154 MMOL/L (135-145); TOTAL PROTEIN 5.5 G/DL (6.4-8.2); eGFR 62 ML/MIN
[2021-04-27 02:19] LABS: TOTAL CARBON DIOXIDE 42.6 MMOL/L (24-32)
[2021-04-27 03:33] LABS: ABG BASE EXCESS 11.1 mmol/L (-2.0-2.0); ABG HCO3 41.6 mmol/L (22.0-26.0); ABG OXYGEN SATURATION 90.9 % (94-97); ABG PCO2 (T) 81.2 mmHg (32.0-45.0); ABG PO2 (T) 66.1 mmHg (75.0-100.0); ALLEN'S TEST POSITIVE; FCOHb 0.6 % (0.0-3.9); FMetHb 0.4 % (0.0-1.5); PATIENT TEMPERATURE 37.5; PEEP 18 cm H2O; RESPIRATORY RATE 24 b/min; TIDAL VOLUME 300 mL; TOTAL HEMOGLOBIN 17.7 G/dl (12.0-16.0)
--- NOTE | 2021-04-27 06:30 | NUR ---
Patient in room CICU 2013. I have received report from Theo ALVA and had the opportunity to ask questions and assume patient care.
[2021-04-27] MEDS: K and/or MAG REPLACEMENT MC SCH (07:32)
[2021-04-27] MEDS: nitroGLYCERIN 0.2mg/hour patch TD SCH (07:33)
[2021-04-27] MEDS: ISOSORBIDE MONONITRATE 10 MG NG SCH (07:33)
[2021-04-27] MEDS: lansoprazole 15mg solutab OGT SCH (07:44)
[2021-04-27] MEDS: docusate sodium 100mg/10ml UD cup OGT SCH ×2 (07:44→19:46)
[2021-04-27] MEDS: lactobacillus rhamnosus 10,000 MMU CELLS/CAPSULE OGT SCH ×2 (07:44→19:48)
[2021-04-27] MEDS: enoxaparin 60mg/0.6ml syringe SUBCUT SCH ×2 (07:44→19:49)
[2021-04-27] MEDS: ezetimibe 10mg tablet OGT SCH (07:45)
[2021-04-27] MEDS: fenofibrate 145mg tablet OGT SCH (07:45)
[2021-04-27] MEDS: metoprolol tartrate 25mg tablet OGT SCH ×2 (07:45→19:48)
[2021-04-27] MEDS: NYSTATIN CREAM - 30GM TUBE TP SCH (07:45)
[2021-04-27] MEDS: lisinopril 20mg tablet OGT SCH (07:46)
[2021-04-27] MEDS: FENTANYL-0.9 % NACL/PF 100 ML IV PRN ×3 (09:29→19:47)
[2021-04-27] MEDS: midazolam 100mg in NS 100ml 100 ML IV PRN ×2 (09:30→19:47)
[2021-04-27] MEDS: VANCOmycin 1250MG/NS 250ml Bag 250 ML IV SCH (10:16)
--- NOTE | 2021-04-27 11:17 | NUR ---
Reassessment: Pt remains intubated on rotoprone and tolerating TF at goal rate with GRV WNL. Serum Na elevated at 154 MMOL/L today, MD requests increasing water flushes to 300 mL Q4H, d/w RN and updated EMR. LBM 04/21, receiving routine bowel care with additional PRN bowel care available, d/w RN who reports pt with active bowel sounds. Pt with a low Rao of 11, per physical assessment pt with BLE/BUE 3+ edema and skin intact. Will continue to follow closely. Recommendations: 1) Continuous TF using Vital High Protein at 50 mL/hr goal. To provide 1200 mL volume/day, 1200 kcal, 105 g protein, and 1008 mL water 2) Additional 300 mL water flush Q4H per MD; monitor serum Na 3) Prealbumin q Sunday/; daily scaled weights 4) Routine bowel care 5) DM education once more appropriate following extubation; A1c 7.7% Addendum: 04/27/21 at [address] Amended: Links added.
[2021-04-27] MEDS: sodium chloride 0.45% 1,000 ML IV SCH ×2 (12:16→21:47)
--- NOTE | 2021-04-27 17:35 | NUR ---
Patient remains sedated on Fentanyl & Versed gtts and paralyzed on Nimbex gtt. Maintaining BIS in 30's 40's. Sats decreased into 80's despite 100% FiO2 and peep 18. CXR done showing increased consolidation and ground glass appearance. ETCO2 rising. Attempted to lavage and suction patient with minimal bloody secretions. Patient very edematous.
--- NOTE | 2021-04-27 17:39 | NUR ---
Dr. Henson aware of patient's sats in 80's. No new orders.
--- NOTE | 2021-04-27 18:25 | NUR ---
Problems reprioritized. Patient report given, questions answered & plan of care reviewed with Sully ALVA.
--- NOTE | 2021-04-27 18:30 | NUR ---
Patient in room CICU 2013. I have received report from Asmita ALVA and had the opportunity to ask questions and assume patient care.
[2021-04-27] MEDS: insulin glargine (Lantus) pen - multi-dose SQ SCH (20:46)
[2021-04-27] MEDS ORDERED: VANCOMYCIN LEVEL IV ONE (21:30)
--- NOTE | 2021-04-27 22:20 | NUR ---
Patient goes in and out of Aflutter and SR. Biz in the 's, titrated sedation meds.
--- NOTE | 2021-04-27 23:30 | NUR ---
Son called and updated on POC.
--- NOTE | 2021-04-27 23:59 | NUR ---
stopped bed and supined patient to adjust pads. Patient desated down into the 70's immediately.
[2021-04-28] VITALS (24 sets, daily range): BP systolic 88–172; BP diastolic 30–76
[2021-04-28] MEDS: CISatracurium besylate inj. 100 MG in normal saline 100ml IV soln 90 ML IV PRN (01:30)
[2021-04-28] MEDS: methylPREDNISolone sod succ 125mg/2ml vial IV SCH ×4 (01:30→19:23)
[2021-04-28] MEDS: FENTANYL-0.9 % NACL/PF 100 ML IV PRN ×4 (01:30→23:56)
[2021-04-28] MEDS: insulin regular, human U-100 3ml vial - multi-dose SQ SCH ×4 (01:54→20:08)
[2021-04-28] MEDS: mineral oil/petrolatum ophthal oint EACHEYE SCH ×4 (01:55→19:20)
[2021-04-28 02:51] LABS: BASOPHILS % (AUTO) 0.1 % (0-1); EOSINOPHILS % (AUTO) 0 % (0-6); HEMATOCRIT 51.8 % (35.0-45.0); HEMOGLOBIN 15.4 g/dl (12.0-16.0); LYMPHOCYTES # (AUTO) 0.3 X10'3 (1.1-4.8); LYMPHOCYTES % (AUTO) 1.9 % (21-51); MEAN CORPUSCULAR HEMOGLOBIN 30.1 PG (27.0-31.0); MEAN CORPUSCULAR HGB CONC 29.7 g/dL (33.0-36.5); MEAN CORPUSCULAR VOLUME 101.1 FL (78-98); MEAN PLATELET VOLUME 9.5 FL (7.4-10.4); MONOCYTES # (AUTO) 0.9 X10'3 (0-0.9); NEUTROPHILS # (AUTO) 15.9 X10'3 (1.8-7.7); PLATELET COUNT 151 X10'3 (140-440); RED BLOOD COUNT 5.12 X10'6 (4.20-5.60); RED CELL DISTRIBUTION WIDTH 16.4 % (11.5-14.5); WHITE BLOOD COUNT 17.1 X10'3 (4.5-11.0)
[2021-04-28 03:01] LABS: D-DIMER 3.03 MG/L FEU (0-0.50)
[2021-04-28 03:11] LABS: ALANINE AMINOTRANSFERASE 24 U/L (12-78); ALBUMIN 1.3 G/DL (3.4-5.0); ALBUMIN/GLOBULIN RATIO 0.4 (1.1-1.5); ALKALINE PHOSPHATASE 93 IU/L (46-116); ANION GAP -3 (8-16); ASPARTATE AMINO TRANSFERASE 35 U/L (10-37); BILIRUBIN,TOTAL 0.5 MG/DL (0.1-1.0); BLOOD UREA NITROGEN 50 MG/DL (7-18); BUN/CREATININE RATIO 45.9 (6.6-38.0); C-REACTIVE PROTEIN 7.05 MG/DL (0.0-0.5); CALCIUM 8.6 MG/DL (8.5-10.1); CHLORIDE 114 MMOL/L (99-107); CREATININE 1.09 MG/DL (0.40-0.90); GLUCOSE 240 MG/DL (70-104); MAGNESIUM 2.6 MG/DL (1.5-2.4); PHOSPHORUS 3.9 MG/DL (2.3-4.5); POTASSIUM 5.4 MMOL/L (3.5-5.1); SODIUM 150 MMOL/L (135-145); TOTAL CARBON DIOXIDE 39.2 MMOL/L (24-32); eGFR 52 ML/MIN
[2021-04-28 04:07] LABS: ABG BASE EXCESS 6.1 mmol/L (-2.0-2.0); ABG HCO3 40.7 mmol/L (22.0-26.0); ABG OXYGEN SATURATION 85.9 % (94-97); ABG PCO2 (T) 122.3 mmHg (32.0-45.0); ABG PO2 (T) 59.4 mmHg (75.0-100.0); ALLEN'S TEST POSITIVE; FCOHb 0.9 % (0.0-3.9); FMetHb 0.3 % (0.0-1.5); FO2Hb 84.9 % (94-97); PATIENT TEMPERATURE 37.6; PEEP 18 cm H2O; RESPIRATORY RATE 24 b/min; TIDAL VOLUME 300 mL; TOTAL HEMOGLOBIN 17.1 G/dl (12.0-16.0)
--- NOTE | 2021-04-28 04:45 | NUR ---
Stopped bed for chest xray. Patient desated to 70's and Aiden down to the 30's. Proned patient again. Sats in the low 80's.
--- NOTE | 2021-04-28 05:00 | NUR ---
Rounded with Tele med doctor. Notified of critical ABG. New orders to increase rate to 28.
--- NOTE | 2021-04-28 06:17 | NUR ---
Problems reprioritized. Patient report given, questions answered & plan of care reviewed with Asmita ALVA.
--- NOTE | 2021-04-28 06:30 | NUR ---
Patient in room CICU 2013. I have received report from Sully ALVA and had the opportunity to ask questions and assume patient care.
[2021-04-28] MEDS: fenofibrate 145mg tablet OGT SCH (07:24)
[2021-04-28] MEDS: enoxaparin 60mg/0.6ml syringe SUBCUT SCH ×2 (07:24→19:20)
[2021-04-28] MEDS: lactobacillus rhamnosus 10,000 MMU CELLS/CAPSULE OGT SCH ×2 (07:24→19:20)
[2021-04-28] MEDS: lansoprazole 15mg solutab OGT SCH (07:24)
[2021-04-28] MEDS: nitroGLYCERIN 0.2mg/hour patch TD SCH (07:24)
[2021-04-28] MEDS: ezetimibe 10mg tablet OGT SCH (07:24)
[2021-04-28] MEDS: NYSTATIN CREAM - 30GM TUBE TP SCH (07:25)
[2021-04-28] MEDS: metoprolol tartrate 25mg tablet OGT SCH ×2 (07:25→19:20)
[2021-04-28] MEDS: ISOSORBIDE MONONITRATE 10 MG NG SCH (07:25)
[2021-04-28] MEDS: docusate sodium 100mg/10ml UD cup OGT SCH ×2 (07:25→19:20)
[2021-04-28] MEDS: lisinopril 20mg tablet OGT SCH (07:26)
[2021-04-28] MEDS ORDERED: sodium polystyrene sulfonate 15gm/60ml oral suspension PO ONE (08:05)
[2021-04-28] MEDS: sodium chloride 0.45% 1,000 ML IV SCH ×2 (08:12→17:16)
[2021-04-28] MEDS: NORepinephrine 8mg/ 250ml NS 250 ML IV SCH ×2 (08:24→17:17)
[2021-04-28] MEDS: midazolam 100mg in NS 100ml 100 ML IV PRN ×2 (08:24→23:56)
[2021-04-28] MEDS: acetaminophen 325mg/10.15ml oral unit dose solution OGT PRN (16:22)
--- NOTE | 2021-04-28 17:26 | NUR ---
Patient remains sedated on Fentanyl & Versed. BIS vacillates between low 20's up to 70. Nimbex titrated down since train of 4 still 0/4. No cough noted when suctioning. Small amount clear/bloody secretions from ETT. Sats continue in mid 80's on FiO2 100% and peep 18. No crepitus noted. Received Kaexylate for K 5.4. Passing gas. No BM.
--- NOTE | 2021-04-28 18:13 | NUR ---
Problems reprioritized. Patient report given, questions answered & plan of care reviewed with Sully ALVA.
--- NOTE | 2021-04-28 18:21 | NUR ---
Patient in room CICU 2013. I have received report from Asmita ALVA and had the opportunity to ask questions and assume patient care.
[2021-04-28] MEDS: insulin glargine (Lantus) pen - multi-dose SQ SCH (20:07)
[2021-04-29] VITALS (15 sets, daily range): BP systolic 0–141; BP diastolic 0–69
[2021-04-29] MEDS: methylPREDNISolone sod succ 125mg/2ml vial IV SCH ×2 (02:01→08:00)
[2021-04-29] MEDS: sodium chloride 0.45% 1,000 ML IV SCH (02:01)
[2021-04-29] MEDS: mineral oil/petrolatum ophthal oint EACHEYE SCH ×2 (02:01→08:25)
[2021-04-29] MEDS: insulin regular, human U-100 3ml vial - multi-dose SQ SCH ×2 (02:09→08:38)
--- NOTE | 2021-04-29 03:02 | NUR ---
Attempted to supine patient. Patient immediatley dropped heart rate to the 20's and not getting volumes. Atropine given by charge preparation technician. Heart rate returned and into the 150's to 160's. Patient returned to prone position. Sat still in the 80's at this time.
[2021-04-29] MEDS: NORepinephrine 8mg/ 250ml NS 250 ML IV SCH (03:11)
--- NOTE | 2021-04-29 03:23 | NUR ---
Notified Dr Martel of change in patients condition. Patient maxed out on LEvo. Notified Miguel (son) of change in patients condition. Son will try and come in a few hours.
[2021-04-29 03:32] LABS: BASOPHILS % (AUTO) 0.1 % (0-1); EOSINOPHILS % (AUTO) 0 % (0-6); HEMATOCRIT 51.2 % (35.0-45.0); HEMOGLOBIN 15.6 g/dl (12.0-16.0); LYMPHOCYTES % (AUTO) 2.4 % (21-51); MEAN CORPUSCULAR HEMOGLOBIN 30.5 PG (27.0-31.0); MEAN CORPUSCULAR HGB CONC 30.4 g/dL (33.0-36.5); MEAN CORPUSCULAR VOLUME 100.4 FL (78-98); MEAN PLATELET VOLUME 10.1 FL (7.4-10.4); MONOCYTES % (AUTO) 5.1 % (2-12); NEUTROPHILS % (AUTO) 92.4 % (42-75); PLATELET COUNT 127 X10'3 (140-440); RED BLOOD COUNT 5.11 X10'6 (4.20-5.60); RED CELL DISTRIBUTION WIDTH 15.9 % (11.5-14.5); WHITE BLOOD COUNT 17.6 X10'3 (4.5-11.0)
[2021-04-29 03:33] LABS: LYMPHOCYTES # (AUTO) 0.4 X10'3 (1.1-4.8); MONOCYTES # (AUTO) 0.9 X10'3 (0-0.9); NEUTROPHILS # (AUTO) 16.3 X10'3 (1.8-7.7)
[2021-04-29 03:38] LABS: D-DIMER 3.62 MG/L FEU (0-0.50)
[2021-04-29 03:47] LABS: ALANINE AMINOTRANSFERASE 29 U/L (12-78); ALBUMIN 1.5 G/DL (3.4-5.0); ALBUMIN/GLOBULIN RATIO 0.4 (1.1-1.5); ALKALINE PHOSPHATASE 117 IU/L (46-116); ANION GAP -4 (8-16); ASPARTATE AMINO TRANSFERASE 27 U/L (10-37); BILIRUBIN,TOTAL 0.6 MG/DL (0.1-1.0); BLOOD UREA NITROGEN 65 MG/DL (7-18); BUN/CREATININE RATIO 49.6 (6.6-38.0); C-REACTIVE PROTEIN 6.53 MG/DL (0.0-0.5); CALCIUM 8.9 MG/DL (8.5-10.1); CHLORIDE 108 MMOL/L (99-107); CREATININE 1.31 MG/DL (0.40-0.90); GLUCOSE 214 MG/DL (70-104); PHOSPHORUS 3.5 MG/DL (2.3-4.5); POTASSIUM 5.9 MMOL/L (3.5-5.1); SODIUM 143 MMOL/L (135-145); TOTAL CARBON DIOXIDE 38.7 MMOL/L (24-32); TOTAL PROTEIN 5.4 G/DL (6.4-8.2); eGFR 42 ML/MIN
[2021-04-29] MEDS: acetaminophen 325mg/10.15ml oral unit dose solution OGT PRN (04:15)
[2021-04-29 04:17] LABS: ABG BASE EXCESS 1.8 mmol/L (-2.0-2.0); ABG HCO3 34.6 mmol/L (22.0-26.0); ABG OXYGEN SATURATION 71.7 % (94-97); ABG PCO2 (T) 102.7 mmHg (32.0-45.0); ABG PO2 (T) 42.6 mmHg (75.0-100.0); ALLEN'S TEST POSITIVE; FCOHb 0.9 % (0.0-3.9); FMetHb 0.2 % (0.0-1.5); FO2Hb 70.9 % (94-97); PATIENT TEMPERATURE 38.2; PEEP 18 cm H2O; RESPIRATORY RATE 28 b/min; TIDAL VOLUME 300 mL; TOTAL HEMOGLOBIN 17.4 G/dl (12.0-16.0)
[2021-04-29] MEDS: FENTANYL-0.9 % NACL/PF 100 ML IV PRN ×2 (05:41→11:09)
--- NOTE | 2021-04-29 05:46 | NUR ---
Son and girlfriend at bedside. Discussed patients POC. Will would like to speak to about comfort care options.
--- NOTE | 2021-04-29 06:20 | NUR ---
Problems reprioritized. Patient report given, questions answered & plan of care reviewed with Steve ALVA.
[2021-04-29] MEDS: ISOSORBIDE MONONITRATE 10 MG NG SCH (08:00)
[2021-04-29] MEDS: lisinopril 20mg tablet OGT SCH (08:00)
[2021-04-29] MEDS: metoprolol tartrate 25mg tablet OGT SCH (08:00)
[2021-04-29] MEDS: enoxaparin 60mg/0.6ml syringe SUBCUT SCH (08:02)
[2021-04-29] MEDS: nitroGLYCERIN 0.2mg/hour patch TD SCH (08:03)
[2021-04-29] MEDS: lansoprazole 15mg solutab OGT SCH (08:03)
[2021-04-29] MEDS: ezetimibe 10mg tablet OGT SCH (08:03)
[2021-04-29] MEDS: fenofibrate 145mg tablet OGT SCH (08:04)
[2021-04-29] MEDS: lactobacillus rhamnosus 10,000 MMU CELLS/CAPSULE OGT SCH (08:04)
[2021-04-29] MEDS: docusate sodium 100mg/10ml UD cup OGT SCH (08:04)
[2021-04-29] MEDS: NYSTATIN CREAM - 30GM TUBE TP SCH (08:25)
[2021-04-29] MEDS ORDERED: vasopressin inj. 40 UNIT in normal saline 50ml IV soln 38 ML IV SCH (09:00)
--- NOTE | 2021-04-29 12:51 | NUR ---
While caring for pt rotoprone bed placed in supine position for pad rearrangement and senior living care, pt became severely bradycardic, apnic and o2 saturations declined to unreadable. No pulse with 60 second check. no respirations asystole present. Dr Reeves was informed, Pt's son Gerardo Hoover was called, he decided [employer] [facility] were to manage body disposition, I called them informing them of pt's covid status
== END 2021-04-29 15:17 | DRG 207 ==
LOC: ER 17:03 → ED HOLD 22:28 → UNDOADMIN 22:28 → EDBEDREQSVC 04-19 17:01 → ED HOLD 04-19 18:54 → ORTHO 4S 04-19 18:54 → CICU 2S 04-21 19:39
PROVIDERS: ADMIT Family Medicine; ATTEND Family Medicine
PROC: XW033E5 Introduction of Remdesivir Anti-infective into Peripheral Vein, Percutaneous Approach, New Technology Group 5 (ICD-10-PCS; principal; 2021-04-17)
PROC: 5A09357 Assistance with Respiratory Ventilation, Less than 24 Consecutive Hours, Continuous Positive Airway Pressure (ICD-10-PCS; 2021-04-18)
PROC: 5A0935A Assistance with Respiratory Ventilation, Less than 24 Consecutive Hours, High Flow/Velocity Cannula (ICD-10-PCS; 2021-04-19)
PROC: 5A09357 Assistance with Respiratory Ventilation, Less than 24 Consecutive Hours, Continuous Positive Airway Pressure (ICD-10-PCS; 2021-04-20)
PROC: 5A0935A Assistance with Respiratory Ventilation, Less than 24 Consecutive Hours, High Flow/Velocity Cannula (ICD-10-PCS; 2021-04-20)
PROC: 5A0935A Assistance with Respiratory Ventilation, Less than 24 Consecutive Hours, High Flow/Velocity Cannula (ICD-10-PCS; 2021-04-21)
PROC: 5A09457 Assistance with Respiratory Ventilation, 24-96 Consecutive Hours, Continuous Positive Airway Pressure (ICD-10-PCS; 2021-04-21)
PROC: 02HV33Z Insertion of Infusion Device into Superior Vena Cava, Percutaneous Approach (ICD-10-PCS; 2021-04-22)
PROC: B548ZZA Ultrasonography of Superior Vena Cava, Guidance (ICD-10-PCS; 2021-04-22)
PROC: 5A1955Z Respiratory Ventilation, Greater than 96 Consecutive Hours (ICD-10-PCS; 2021-04-23)
PROC: 0BH17EZ Insertion of Endotracheal Airway into Trachea, Via Natural or Artificial Opening (ICD-10-PCS; 2021-04-23)
PROC: 5A12012 Performance of Cardiac Output, Single, Manual (ICD-10-PCS; 2021-04-29)
DX: U07.1 COVID-19 (principal); J96.01 Acute respiratory failure with hypoxia; J12.82 Pneumonia due to coronavirus disease 2019; I21.A1 Myocardial infarction type 2; I50.33 Acute on chronic diastolic (congestive) heart failure; J96.02 Acute respiratory failure with hypercapnia; A41.9 Sepsis, unspecified organism; N17.9 Acute kidney failure, unspecified; I13.0 Hypertensive heart and chronic kidney disease with heart failure and stage 1 through stage 4 chronic kidney disease, or unspecified chronic kidney disease; Z68.43 Body mass index [BMI] 50.0-59.9, adult; E66.01 Morbid (severe) obesity due to excess calories; D75.1 Secondary polycythemia; E11.22 Type 2 diabetes mellitus with diabetic chronic kidney disease; E11.65 Type 2 diabetes mellitus with hyperglycemia; E78.00 Pure hypercholesterolemia, unspecified; Z66 Do not resuscitate; E78.5 Hyperlipidemia, unspecified; E87.5 Hyperkalemia; J45.909 Unspecified asthma, uncomplicated; R63.0 Anorexia; I95.9 Hypotension, unspecified; R19.7 Diarrhea, unspecified; R51.9 Headache, unspecified; K80.20 Calculus of gallbladder without cholecystitis without obstruction; N18.9 Chronic kidney disease, unspecified; Z87.442 Personal history of urinary calculi; Z87.891 Personal history of nicotine dependence; Z88.0 Allergy status to penicillin; Z88.5 Allergy status to narcotic agent; Z88.8 Allergy status to other drugs, medicaments and biological substances; Z79.899 Other long term (current) drug therapy; Z79.82 Long term (current) use of aspirin
CPT/HCPCS: 36415; 36573; 36600; 71045; 76700; 80053; 80202; 82803; 82810; 82948; 83036; 83615; 83735; 83880; 84100; 84134; 84145; 84443; 84484; 85007; 85018; 85025; 85379; 85610; 86140; 87040; 87070; 87077; 87081; 87088; 87186; 87635; 92950; 93005; 93306; 93970; 94002; 94003; 94660; 94760; 96361; 96365; 96366; 96375; 99291; C9113; C9803; G0378; J1100; J1650; J1815; J1940; J1956; J2920; J2930; J3010; J3370; J3480; J3490; J7030